=== PATIENT | female | born 1955 | race Hispanic/Latino ===

== ENCOUNTER 2017-05-20 18:14 | Observation (INO) | payer SELFPAY ==
[2017-05-20] MEDS ORDERED: Nitroglycerin 2% Ointment 1 INCH/1 GM Packet ONE (18:48)
[2017-05-20 18:51] LABS: #Basophils 0.1 thou/uL (0.0-0.2); #Eosinphils 0.2 thou/uL (0.0-0.7); #Lymphocytes 2.1 thou/uL (1.20-3.40); #Monocytes 0.6 thou/uL (0.11-0.59); #Neutrophils 5.2 thou/uL (1.40-6.50); %Basophils 1.5 % (0.0-1.0); %Lymphocytes 25.3 % (21.0-51.0); %Monocytes 7.4 % (0.0-10.0); %Neutrophils 63.9 % (42.0-75.0); Mean Corpuscular HGB CONC 33.3 g/dL (32.0-36.0); Mean Corpuscular Hemoglobin 28.8 pg (27.0-31.0); Mean Corpuscular Volume 86.6 fl (81.0-99.0); Platelet Count 168 thou/uL (130-400); RBC Distribution Width 12.3 % (11.5-14.5); Red Blood Cell (RBC) Count 4.85 mill/uL (4.20-5.40); White Blood Cell (WBC) Count 8.2 thou/uL (4.8-10.8)
[2017-05-20 19:12] LABS: ALT (SGPT) 17 U/L (8-55); AST (SGOT) 21 U/L (5-34); Albumin 4.2 g/dL (3.4-4.8); Alkaline Phosphatase 82 U/L (40-150); Anion Gap 11 mmol/L (10-20); BUN (Urea Nitrogen) 15 mg/dL (9.8-20.1); Bilirubin, Total 0.3 mg/dL (0.2-1.2); Calc. Creatinine Clearance 0 mL/min (70-130); Calcium 9.3 mg/dL (7.8-10.44); Carbon Dioxide 28 mmol/L (23-31); Chloride 103 mmol/L (98-107); Estimated GFR-MDRD 77; Globulin 2.8 g/dL (2.4-3.5); Glucose 110 mg/dL (80-115); Potassium 3.9 mmol/L (3.5-5.1); Sodium 138 mmol/L (136-145)
[2017-05-20 19:16] LABS: CKMB 2.8 ng/mL (0-6.6); Troponin I 0.017 ng/mL (< 0.028)
[2017-05-20] MEDS ORDERED: Enoxaparin Sodium 80 MG/0.8 ML SYRINGE ONE (19:45)
--- NOTE | 2017-05-20 19:56 | RAD ---
PORTABLE AP CHEST X-RAY 05/20/17 HISTORY: Shortness of breath and diaphoresis. High blood pressure. COMPARISON: 11/29/11. FINDINGS: The cardiac silhouette is magnified by projection. Pulmonary vasculature is within normal limits. The re is elevation versus eventration of the right hemidiaphragm. The lungs remain clear. There has been no interval change from prior study. IMPRESSION: No acute cardiopulmonary process. POS: [facility]
[2017-05-20] MEDS ORDERED: ALPRAZolam 0.25 MG TAB PO PRN (20:02)
[2017-05-20] MEDS ORDERED: Nitroglycerin 0.4 MG TAB (25 Tab Bottle) SL PRN (21:17)
[2017-05-20] MEDS ORDERED: Bisacodyl 5 MG TAB PO PRN (21:17)
[2017-05-20] MEDS ORDERED: Acetaminophen 325 MG TAB PO PRN (21:17)
[2017-05-20] MEDS ORDERED: Ondansetron HCl/PF 4 MG/2 ML Vial IVP PRN (21:17)
[2017-05-20] MEDS ORDERED: Zolpidem Tartrate 5 MG TAB PO PRN (21:17)
[2017-05-20] MEDS ORDERED: Metoprolol Tartrate 50 MG TAB PO SCH (21:30)
[2017-05-20] MEDS ORDERED: Famotidine/PF 20 mg/2ml Vial SLOW IVP SCH (21:30)
[2017-05-20] MEDS: Atorvastatin Calcium 20 MG TAB PO SCH (21:58)
[2017-05-21 01:06] LABS: Troponin I 1.974 ng/mL (< 0.028)
--- NOTE | 2017-05-21 01:37 | HP ---
HISTORY OF PRESENT ILLNESS: Mrs. Roland is a 62-year-old woman. She came to this facility earlier today with complaint of chest pain and chest pain, which started earlier this afternoon whil e she was sitting was pressure in type, radiated to the left arm, was accompanied by diaphoresis and also vomiting. Pain lasted about 40 minutes until she came to the ER. At that time, she was given n itroglycerin to which she responded. She is being admitted for evaluation and management. She came that she had a similar episode of chest pain about 1 month ago. She denies any previous his tory of heart disease. She is known to have a history of hypertension. She denies diabetes, denies lung disease. Denies liver disease. PAST SURGICAL HISTORY: Remarkable for back surgery which she had twice. She also had previous marie cystectomy and also hysterectomy. ALLERGIES: She does not have any known allergy. SOCIAL HISTORY: She denies any history of cigarette smoking. Denies any history of ETOH abuse. FAMILY HISTORY: Reviewed and is remarkable for premature coronary artery disease. MEDICATIONS: Prior to admission, she was on Coreg, hydrochlorothiazide, losartan, estradiol, meloxic am, gabapentin, sertraline, Protonix, atorvastatin, Zofran, Caltrate with vitamin D. REVIEW OF SYSTEMS: Constitutional: She denies any fever. Denies any weakness. HEENT: No headache , no ocular pain, no sore throat, no rhinorrhea, no earache, no epistaxis. Neck: No neck pain, no n luz stiffness. Cardiovascular: She has some exertional dyspnea. She came in with chest pain as men tioned earlier. Also, we have to mention she had some dizziness and lightheadedness chest pain . Pulmonary: She denies any coughing. Gastrointestinal: She vomited during the chest pain. No di arrhea, no abdominal pain. Musculoskeletal: Admits to arthralgias. Genitourinary: No dysuria, no hematuria. Hematology: No abnormal bleeding, no ecchymosis. Lymphatics: No palpable lymphadenopat hy, no painful lymphadenopathy. Skin: No rash, no itching. Allergies: No hayfever. Neurological: No seizure. Some paresthesia involving the right leg. Psychiatric: Admits to depression for whic h she has been on medication. Endocrinology: No heat or cold intolerance. No polyuria, polydipsia, or polyphagia. PHYSICAL EXAMINATION: GENERAL: At the current time, she is alert, oriented, in no distress. VITAL SIGNS: Temperature of 98.3, pulse rate 65, respiratory rate 19, blood pressure 193/70. HEENT: Her head is normocephalic and atraumatic. Both her pupils are equal, reactive. Ears and nos e normal. Oral mucosa is moist. Pharyngeal area is clear. NECK: Supple. There is no distention of the jugular vein. No lymphadenopathy felt. Thyroid gland not palpable. There is no carotid bruit. CHEST: Symmetrical with regular S1, S2. LUNGS: Clear. ABDOMEN: Soft. Bowel sound heard. We could not appreciate any organomegaly. There is no focal are a of tenderness. EXTREMITIES: Limbs show no edema. NEUROLOGIC: She moves all extremities. LABORATORY DATA: CBC showed WBC of 8.2, hemoglobin of 14, hematocrit of 42, MCV of 86.6, platelet of 168. Chemistry and electrolytes show sodium of 138, potassium 3.9, chloride 103, CO2 28, BUN 15, cr eatinine 0.76, glucose 110, calcium 9.3, total bilirubin 0.3, AST 21, ALT 17, alkaline phosphatase 82 . Troponin was noticed to be 0.017, BNP 108.3, total protein 7, albumin 4.2. Chest x-ray was report ed to show no acute cardiopulmonary process. ASSESSMENT AND PLAN: This is a 62-year-old woman with history of hypertension, obesity who came in with complaint of chest pain. Chest pain which was accompanied by shortness of breath, light headedness, diaphoresis, and also nausea and vomiting with chest pain radiated to her left arm was pr essure in type and lasted about 40 minutes until she receive nitroglycerin at which time her pain was relieved. She is being admitted to telemetry with impression of unstable angina. Cardiology consul t was called. Please see orders.
[2017-05-21] MEDS: Levothyroxine Sodium 25 MCG TAB PO SCH (05:47)
[2017-05-21 05:57] LABS: Anion Gap 12 mmol/L (10-20); BUN (Urea Nitrogen) 13 mg/dL (9.8-20.1); Calc. Creatinine Clearance 119 mL/min (70-130); Calcium 8.8 mg/dL (7.8-10.44); Carbon Dioxide 27 mmol/L (23-31); Chloride 105 mmol/L (98-107); Estimated GFR-MDRD 86; Glucose 104 mg/dL (80-115); Potassium 3.7 mmol/L (3.5-5.1); Sodium 140 mmol/L (136-145)
[2017-05-21] MEDS ORDERED: Regadenoson 0.4 MG/5 ML SYRINGE ONE (06:58)
[2017-05-21 08:44] LABS: Critical Call Chem Troponin I RESULT DECREASING; Troponin I 1.384 ng/mL (< 0.028)
[2017-05-21] MEDS ORDERED: CeleCOXIB 100 MG CAP PO SCH (09:00)
[2017-05-21] MEDS ORDERED: Bupropion 150 MG SR TAB PO SCH (09:00)
--- NOTE | 2017-05-21 10:56 | PDOC.PN ---
- Subjective Encounter Start Date: 05/21/17 Encounter Start Time: 10:00 Subjective: No complaint. -: No chest pain. - Objective Resuscitation Status: Resuscitation Status FULL:Full Resuscitation Vital Signs & Weight: Vital Signs (12 hours) Temp Pulse Resp BP BP Pulse Ox 05/21/17 08:09 98.2 F 67 20 05/21/17 07:38 98.2 F 67 20 142/68 H 95 05/21/17 03:55 58 L 18 136/72 96 05/21/17 00:35 66 18 131/60 95 Weight Weight 195 lb 12.8 oz Result Diagrams: 05/20/17 18:41 05/21/17 05:10 Phys Exam - Physical Examination Constitutional: NAD HEENT: sclera anicteric Neck: no JVD Respiratory: clear to auscultation bilateral Cardiovascular: RRR Gastrointestinal: soft, non-tender Musculoskeletal: no edema Neurological: moves all 4 limbs Psychiatric: A&O x 3 Dx/Plan (1) Elevated troponin Code(s): R74.8 - ABNORMAL LEVELS OF OTHER SERUM ENZYMES Status: Acute Plan: For stress test. Comment: EKG normal. NSTMI. Seen by cardiology. (2) HTN (hypertension) Code(s): I10 - ESSENTIAL (PRIMARY) HYPERTENSION Status: Acute Comment: BP satisfactory. - Plan -: Continue current therapy. -: f/u stress test. * .
[2017-05-21] MEDS: Metoprolol Tartrate 50 MG TAB PO SCH ×2 (13:30→20:15)
[2017-05-21] MEDS: Amlodipine 5 MG TAB PO SCH (13:31)
[2017-05-21] MEDS: Aspirin 81 mg Enteric Coated Tablet PO SCH (13:31)
[2017-05-21] MEDS: Famotidine/PF 20 mg/2ml Vial SLOW IVP SCH ×2 (13:31→20:17)
[2017-05-21] MEDS: Enoxaparin Sodium 60 MG/0.6 ML SYRINGE SC SCH ×2 (13:31→20:21)
--- NOTE | 2017-05-21 14:59 | CON ---
DATE OF ADMISSION: 05/20/2017 DATE OF CONSULTATION: 05/21/2017 ORDERING PHYSICIAN: Dr. Alysia Dumont. INDICATION FOR CONSULTATION: This is a 62-year-old female who experienced chest pain yesterday. She does have a history of hypertension, but no history of diabetes. She described the pain is being pr essured; radiating down to the left arm. She has had some problems with this for several months now. She also complains of occasional nausea and diaphoresis, but the chest discomfort was worse yesterd ay with some numbness in the left arm, it lasted about half an hour to 45 minutes. At the time, she arrived to the emergency room, the symptoms significantly improved, but was given medication in the e mergency room that had complete resolution. EKG was unremarkable. No evidence of EKG changes. Her cardiac enzymes originally were indeterminant or were negative at 0.017, increased up to 0.97, eventu ally up to 1.97 and is now decreased back down to 1.38 with a MB of 2.8. Her BNP was 100.8. She has had some sharp pains also in the past, which was stabbing in nature and sometimes pressure in nature . She was seen by Cardiology approximately 2 years ago at [facility]. It was uncertain as to w hat studies were done, but she said this was prior to undergoing some type of back surgery and she di d not have a cardiac catheterization or stress test according to the patient and was told everything was okay. PAST MEDICAL HISTORY: Significant for cholecystectomy, hysterectomy, back surgery x2, history of dep ression. SOCIAL HISTORY: She has no alcohol or tobacco abuse. She does not work. 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 She speaks very little Greek. FAMILY HISTORY: Positive for some coronary artery disease at younger ages. HOME MEDICATIONS: Include Coreg, estradiol, gabapentin, losartan, meloxicam, Protonix, hydrochloroth iazide, Naprosyn, sertraline, Norvasc, Lipitor, and levothyroxine. ALLERGIES: None. REVIEW OF SYSTEMS: She complains of occasional bronchitis. Neck pain, headaches, dizziness, arthral gias, constipation, occasional nausea, and vomiting, right leg weakness, and dyspnea on exertion. PHYSICAL EXAMINATION: GENERAL: Reveals a well-developed, well-nourished female. VITAL SIGNS: Blood pressure 142/68, heart rate is 67 and regular, respiratory rate 18. She is afebr ile. HEENT: Reveals head to be normocephalic and atraumatic. Carotid pulses are present. There were no bruits. There is no JVD. The thyroid is not enlarged. Oral mucosa was pink and moist. CHEST: Clear to auscultation without rales, rhonchi, or wheezing. CARDIOVASCULAR: Exam reveals a regular rate and rhythm, normal S1, S2, no S3, S4. There were no sig nificant murmurs, heaves, thrills, bruits, or rubs noted. ABDOMEN: Shows obesity with positive bowel sounds. No organomegaly or masses noted. Femoral pulses are present. EXTREMITIES: Showed no clubbing, cyanosis, or edema. Pedal pulses are present. She does have weakn ess in the right lower extremity after back surgery. NEUROLOGIC: She is otherwise unremarkable. SKIN: Warm and dry. IMAGING: EKG shows a normal sinus rhythm. LABORATORY DATA: As noted above for the troponin I, which originally was 0.017 and increased up to 1 .97, is now decreased down to 1.38, but negative MB. Her creatinine is 0.69 with hemoglobin of 14. IMPRESSION: 1. Chest pain with indeterminate cardiac enzymes of uncertain etiology. I would advise her since ey are decreasing and if she has no further chest pain and EKG is unremarkable, she undergo stress te sting. If there are any abnormalities, then she will need to undergo cardiac catheterization to rule out coronary artery disease. 2. Hypertension. This is under good control at this time with the present medication. She did admi t that, yesterday, she did not take her hypertensive medications prior to having the chest discomfort . 3. Hypercholesterolemia. I would advise she continue taking Lipitor. 4. Hypothyroidism. She will continue her levothyroxine. At this time, we will be more than happy t o continue to follow her very carefully. I will order a stress test for her and if there are any abn ormalities, we will plan for cardiac catheterization tomorrow.
[2017-05-21] MEDS: Atorvastatin Calcium 20 MG TAB PO SCH (20:15)
[2017-05-22 05:25] LABS: Cardiac Risk 2.9 (Less than 4.5)
[2017-05-22] MEDS: Levothyroxine Sodium 25 MCG TAB PO SCH (05:49)
--- NOTE | 2017-05-22 09:02 | PDOC.CTH ---
<Jackelyn Moore - Last Filed: 05/22/17 09:00> Cardiology Progress Note - Subjective The pt seen and examined. No overnight cardiac events. No cardiac complaints. She had 2 episodes of Vertigo-like dizziness when she was in bed. Daughter stated she has hx of vertigo. - Objective Vital Signs Temp Pulse Resp BP Pulse Ox 05/22/17 07:42 98.4 F 60 16 05/22/17 07:38 98.4 F 63 20 135/64 96 05/22/17 04:15 98.4 F 60 16 127/60 96 05/21/17 23:11 98.1 F 62 18 146/65 H 96 Weight 191 lb 6.4 oz 05/21/17 05/22/17 05/23/17 06:59 06:59 06:59 Intake Total 392 Output Total 725 Balance -333 - Physical Examination General/Neuro: alert & oriented x3 Neck: no JVD present Lungs: CTA Heart: RRR Extremities: other: (No edema) - Telemetry Telemetry Rhythm: SR 65 - Labs Result Diagrams: 05/20/17 18:41 05/21/17 05:10 Troponin/CKMB CK-MB (CK-2) 2.8 ng/mL (0-6.6) 05/20/17 18:41 Troponin I 1.384 ng/mL (< 0.028) H* 05/21/17 07:55 - Assessment/Plan 1. Elevated Trop. - finishing Stress test today. On BBlocker, ASA 81mg, Statin, and Lovenox BID. If the stress test shows some abnomarlities, plan for Cardiac cath. 2. HTN - stable with current medication; cont. to monitor 3. Hyperlipidemia - on Statin 4. Hypothyroidism - on Levothyroxin; managed by PCP 5. Hx of Vertigo - 2 episodes last night when she was in bed. Described as she was having sea sick. MAR reviewed. Review of Systems - Review of Systems Constitutional: reports: see HPI EENTM: reports: no symptoms reported Respiratory: reports: no symptoms reported Cardiac (ROS): reports: no symptoms reported ABD/GI: reports: no symptoms reported : reports: no symptoms reported Musculoskeletal: reports: no symptoms reported <Jp Sinclair - Last Filed: 05/23/17 11:02> Cardiology Progress Note - Objective Weight 191 lb 6.4 oz 05/22/17 05/23/17 05/24/17 06:59 06:59 06:59 Intake Total 392 Output Total 725 Balance -333 - Labs Result Diagrams: 05/22/17 04:26 05/22/17 04:26 Troponin/CKMB CK-MB (CK-2) 2.8 ng/mL (0-6.6) 05/20/17 18:41 Troponin I 1.384 ng/mL (< 0.028) H* 05/21/17 07:55 - Assessment/Plan Pt. seen and eval. by me. I agree with the A/P by the SCHOOL SPEECH THERAPIST. I discussed the stress test results with her. Chest clear, RRR. Ok to d/c to home . I will sign off.
[2017-05-22] MEDS: Aspirin 81 mg Enteric Coated Tablet PO SCH (09:32)
[2017-05-22] MEDS: Metoprolol Tartrate 50 MG TAB PO SCH (09:32)
[2017-05-22] MEDS: Famotidine/PF 20 mg/2ml Vial SLOW IVP SCH (09:32)
[2017-05-22] MEDS: Amlodipine 5 MG TAB PO SCH (09:34)
[2017-05-22 09:59] LABS: Hemoglobin 14.5 g/dL (12.0-16.0); Platelet Count 160 thou/uL (130-400)
[2017-05-22 11:32] VITALS: TEMP 98.2
--- NOTE | 2017-05-22 12:05 | NM ---
NUCLEAR MEDICINE CARDIAC STRESS WITH EJECTION FRACTION AND WALL MOTION: HISTORY: Chest pain. Diaphoresis. COMPARISON: None. TECHNIQUE: The patient was administered 29.80 mCi of technetium-99m sestamibi for rest imaging and 30.80 mCi of technetium-99m sestamibi for stress imaging. Cardiac gating is performed. FINDINGS: Homogeneous distribution of the radiotracer in the left ventricle. No reversibility or fixed defect. TID is 1.04. End-diastolic volume is 80 mL. End-systolic volume is 21 mL. CARDIAC GATING: Normal motion and thickening. 73% ejection fraction. IMPRESSION: 1. No reversibility or fixed defect. 2. Ejection fraction 73%. POS: [facility]
[2017-05-22] MEDS: Enoxaparin Sodium 60 MG/0.6 ML SYRINGE SC SCH (14:06)
[2017-05-22 15:04] VITALS: BP 159/69
--- NOTE | 2017-05-22 16:02 | DIS ---
DATE OF ADMISSION: 05/20/2017 DATE OF DISCHARGE: 05/22/2017 ADMITTING DIAGNOSIS: Acute chest pain. DISCHARGE DIAGNOSIS: Non-ST elevated myocardial infarction. SECONDARY DIAGNOSES: 1. Morbid obesity. 2. Benign positional vertigo. 3. Hypertension. 4. Hyperlipidemia. HISTORY OF PRESENT ILLNESS AND HOSPITAL COURSE: In brief, this is a 62-year-old morbidly obese [facility] woman. She came into the hospital complaining of chest pain. It started earlier this afternoon and was more of a pressure type of pain radiated in the left arm and was associated with diaphoresis and vomiting. The patient's pain lasted for more than 40 minutes. When she came to the ER and she w as given nitroglycerin, which did relieve her pain. She denies any previous past history of cardiac disease, but has history of hypertension. No history of diabetes. No history of lung disease. Jessi ent was noted to have elevated troponins, so Cardiology was consulted, who decided to do a nuclear st ress test. Patient was chest pain free when she came to the hospital after she was given nitroglycer in. Her troponins went up to 1.384 and Cardiology did decide to send her for a nuclear stress test, which was unremarkable with no evidence of any reversible defects. So the following day, the patient 's chest pain was gone, but there is no troponin followed and no repeat EKG was done. Cardiology dec ided to discharge the patient home on aspirin and statins. Consultants involved in this care is Dr. Sinclair from Cardiology. PHYSICAL EXAMINATION: VITAL SIGNS: Blood pressures are 135/64, heart rate is 63, respiratory is 20, and saturation 96%. GENERAL: The patient is moderately built and moderately nourished. She does not appear to be in acu te distress at this time. Alert, oriented x3. HEENT: Atraumatic, normocephalic. PERRLA. Extraocular muscles were intact. Oral mucosa pink and m oist. CARDIOVASCULAR: S1 and S2 normal. No murmurs, rubs or gallops. LUNGS: Bilateral air entry was equal. No wheezing, no crackles. ABDOMEN: Soft, nontender, no guarding, no rebound tenderness. Bowel sounds are normal. MUSCULOSKELETAL: No calf tenderness, no pedal edema, no joint tenderness, no joint swelling. SKIN: No cyanosis, no erythema, no rash, no pallor. DISCHARGE MEDICATIONS: 1. Coreg 6.25 mg p.o. b.i.d. 2. Gabapentin 300 mg p.o. t.i.d. 3. Losartan 25 mg p.o. daily. 4. Meloxicam 50 mg p.o. daily. 5. Pantoprazole 40 mg p.o. b.i.d. 4. Hydrochlorothiazide 25 mg p.o. daily. 5. Sertraline 100 mg p.o. daily. 6. Amlodipine 10 mg p.o. daily. 7. Levothyroxine 50 mcg p.o. daily. NEW MEDICATIONS: 1. Atorvastatin 20 mg p.o. daily. 2. Aspirin 81 mg p.o. daily. 3. Nitroglycerin 0.4 mg sublingual p.r.n. as needed for chest pain. DISCHARGE INSTRUCTIONS: Continue activity as tolerated. Advised to follow up with Cardiology in 1-2 weeks. Advised to follow up with primary care physician in 1-2 weeks. Advised to return to the ER if the patient develops any further chest pains. I spent 35 minutes with this patient.
--- NOTE | 2017-05-27 15:13 | EKG ---
Test Reason : REPEAT EKG Blood Pressure : / mmHG Vent. Rate : 066 BPM Atrial Rate : 066 BPM P-R Int : 152 ms QRS Dur : 078 ms QT Int : 406 ms P-R-T Axes : 069 014 044 degrees QTc Int : 425 ms Normal sinus rhythm Normal ECG Confirmed by ODILON GUPTA ([id number]), associate entertainment editor BELL RUELAS ([id number]) on 05/27/2017 3:12:49 PM Referred By: Confirmed By:ODILON GUPTA
--- NOTE | 2017-05-27 15:13 | EKG ---
Test Reason : HTN Blood Pressure : / mmHG Vent. Rate : 068 BPM Atrial Rate : 068 BPM P-R Int : 134 ms QRS Dur : 090 ms QT Int : 402 ms P-R-T Axes : 055 022 055 degrees QTc Int : 427 ms Normal sinus rhythm Normal ECG Confirmed by ODILON GUPTA ([id number]), desk editor BELL RUELAS ([id number]) on 05/27/2017 3:12:48 PM Referred By: Confirmed By:ODILON GUPTA
--- NOTE | 2017-06-27 13:36 | STRESS ---
Acquisition Time: 2017-05-21 11:33:23 Total Exercise Time: 00:01:00 Test Indications: CP, INDETERMINATE CIE'S Medications: Protocol: LEXISCAN Max HR: 092 BPM 58% of Pred: 158 BPM Max BP: 136/074 mmHG Max Work Load: 1.0 METS RESTING ECG: NORMAL SINUS RHYTHM AT 64 BPM SYMPTOMS: CHEST TIGHTNESS, DYSPNEA ON EXERTION NORMAL BP RESPONSE ECTOPY: NONE ECG STRESS: NO SIGNIFICANT CHANGES INTERPRETATION: NEGATIVE ECG/ AWAIT NUCLEAR IMAGES FOR DEFINITIVE DIAGNOSIS Confirmed by ISACC FONTAINE ([id number]) on 06/27/2017 1:35:50 PM Referred By: Delfina SOLIS Confirmed By:ISACC FONTAINE
== END 2017-05-22 15:58 | disposition home or self-care (01) ==
LOC: ERS 18:14 → 2SW 19:35
PROVIDERS: ADMIT Hospitalist; ATTEND Hospitalist
DX: I21.4 Non-ST elevation (NSTEMI) myocardial infarction (principal); H81.10 Benign paroxysmal vertigo, unspecified ear; I10 Essential (primary) hypertension; E78.5 Hyperlipidemia, unspecified; F32.9 Major depressive disorder, single episode, unspecified; E78.00 Pure hypercholesterolemia, unspecified; E03.9 Hypothyroidism, unspecified; E66.01 Morbid (severe) obesity due to excess calories; Z68.33 Body mass index [BMI] 33.0-33.9, adult; Z79.899 Other long term (current) drug therapy; Z90.49 Acquired absence of other specified parts of digestive tract; Z90.710 Acquired absence of both cervix and uterus; Z98.890 Other specified postprocedural states
CPT/HCPCS: 36415; 71045; 78452; 80048; 80053; 80061; 82553; 82565; 83880; 84484; 85014; 85018; 85025; 85049; 93005; 93017; 96372; 96375; 96376; A4216; A9500; G0378; J1650; J2785; S0028

== ENCOUNTER 2020-04-29 09:34 | Emergency (ER) | payer BC, SELFPAY ==
--- NOTE | 2020-04-29 10:20 | RAD ---
XR Chest 1 View Portable History: Dyspnea Comparison: Radiograph May 20, 2017 Findings: Faint peripheral and perihilar airspace opacities. No pneumothorax. No effusion. No acute o sseous abnormality. Cardiac silhouette and mediastinal contours are similar. Impression: Mild peripheral and parahilar patchy airspace opacities can be seen with Covid 19 pneumon ia.
[2020-04-29 11:05] LABS: #Monocytes 0.3 thou/uL (0.11-0.59); #Neutrophils 2.2 thou/uL (1.40-6.50); %Basophils 1.1 % (0.0-1.0); %Eosinophils 0.3 % (0.0-10.0); %Lymphocytes 28.6 % (21.0-51.0); %Monocytes 7.7 % (0.0-10.0); %Neutrophils 62.4 % (42.0-75.0); Hemoglobin 15.7 g/dL (12.0-16.0); Large Platelets SLIGHT; MDiff Complete? YES; Mean Corpuscular Hemoglobin 28.9 pg (27.0-31.0); Mean Corpuscular Volume 85.2 fL (78.0-98.0); Mean Platelet Volume 10.9 fL (7.4-10.4); Platelet Count 66 thou/uL (130-400); Platelet Morphology Comment Appears Decreased; RBC Distribution Width 11.9 % (11.5-14.5); RBC Morphology Normal; Red Blood Cell (RBC) Count 5.41 mill/uL (4.20-5.40); White Blood Cell (WBC) Count 3.6 thou/uL (4.8-10.8)
[2020-04-29 11:34] LABS: Anion Gap 18 mmol/L (10-20); BUN (Urea Nitrogen) 11 mg/dL (9.8-20.1); Calc. Creatinine Clearance 0 mL/min (70-130); Carbon Dioxide 26 mmol/L (23-31); Chloride 93 mmol/L (98-107); Potassium 3.5 mmol/L (3.5-5.1); Sodium 133 mmol/L (136-145)
[2020-04-29 11:35] LABS: ALT (SGPT) 34 U/L (8-55); AST (SGOT) 49 U/L (5-34); Alkaline Phosphatase 95 U/L (40-110); Bilirubin, Total 0.5 mg/dL (0.2-1.2); Calcium 8.5 mg/dL (7.8-10.44); Globulin 3.8 g/dL (2.4-3.5); Glucose 173 mg/dL (80-115); Protein, Total 7.8 g/dL (5.8-8.1)
[2020-04-29 17:57] LABS: SARS-CoV-2 PCR by NAA DETECTED (NotDetected)
== END 2020-04-29 11:38 | disposition home or self-care (01) ==
LOC: ERS 09:34
DX: U07.1 COVID-19 (principal); I25.10 Atherosclerotic heart disease of native coronary artery without angina pectoris; E78.5 Hyperlipidemia, unspecified; I10 Essential (primary) hypertension
CPT/HCPCS: 71045; 80053; 83880; 84484; 85025; 87635; 93005; U0003; U0005

== ENCOUNTER 2020-05-01 13:06 | Emergency (ER) | payer OTHER, SELFPAY ==
[2020-05-01] MEDS ORDERED: Acetaminophen 500 MG TAB ONE (13:35)
[2020-05-01 14:16] LABS: #Lymphocytes 1.1 thou/uL (1.20-3.40); #Monocytes 0.3 thou/uL (0.11-0.59); %Eosinophils 0.1 % (0.0-10.0); %Lymphocytes 32.3 % (21.0-51.0); %Monocytes 9.5 % (0.0-10.0); %Neutrophils 57.2 % (42.0-75.0); Hemoglobin 14.7 g/dL (12.0-16.0); Mean Corpuscular HGB CONC 33.4 g/dL (32.0-36.0); Mean Corpuscular Hemoglobin 28.2 pg (27.0-31.0); Mean Corpuscular Volume 84.3 fL (78.0-98.0); Mean Platelet Volume 10.4 fL (7.4-10.4); Platelet Count 94 thou/uL (130-400); RBC Distribution Width 11.8 % (11.5-14.5); Red Blood Cell (RBC) Count 5.22 mill/uL (4.20-5.40); White Blood Cell (WBC) Count 3.4 thou/uL (4.8-10.8)
[2020-05-01 14:23] LABS: ALT (SGPT) 30 U/L (8-55); AST (SGOT) 43 U/L (5-34); Albumin 3.5 g/dL (3.4-4.8); Alkaline Phosphatase 80 U/L (40-110); Anion Gap 14 mmol/L (10-20); BUN (Urea Nitrogen) 10 mg/dL (9.8-20.1); Bilirubin, Total 0.5 mg/dL (0.2-1.2); Calc. Creatinine Clearance 0 mL/min (70-130); Calcium 8.1 mg/dL (7.8-10.44); Carbon Dioxide 32 mmol/L (23-31); Chloride 91 mmol/L (98-107); Globulin 3.2 g/dL (2.4-3.5); Glucose 136 mg/dL (80-115); Potassium 3.1 mmol/L (3.5-5.1); Protein, Total 6.7 g/dL (5.8-8.1); Sodium 134 mmol/L (136-145)
[2020-05-01] MEDS ORDERED: Potassium Chloride 20 MEQ TAB ONE (15:13)
== END 2020-05-01 19:42 | disposition home or self-care (01) ==
LOC: ERS 13:06
DX: M62.81 Muscle weakness (generalized) (principal); U07.1 COVID-19; I25.10 Atherosclerotic heart disease of native coronary artery without angina pectoris; E87.6 Hypokalemia; I25.2 Old myocardial infarction; I10 Essential (primary) hypertension; E03.9 Hypothyroidism, unspecified; E78.5 Hyperlipidemia, unspecified; Z79.899 Other long term (current) drug therapy
CPT/HCPCS: 36415; 71045; 80053; 83605; 83880; 84484; 85025; 87040; 93005

== ENCOUNTER 2020-05-02 13:09 | Inpatient (IN) | payer SELFPAY ==
[~2020-05-02 13:09] MED LIST: Iopamidol-370 76% 500 ML 1 ML ONE
[2020-05-02] MEDS ORDERED: Aspirin Chewable 81 MG TAB ONE (15:35)
[2020-05-02] MEDS ORDERED: Acetaminophen 500 MG TAB ONE (15:35)
[2020-05-02] MEDS ORDERED: Ondansetron PF 4 MG/2 ML Vial ONE (15:35)
[2020-05-02] MEDS ORDERED: Dexamethasone 10 MG/ML VIAL ONE (15:35)
--- NOTE | 2020-05-02 16:58 | RAD ---
Exam: Chest one view HISTORY:Positive patient. Patient feels horrible. Comparison: 1221 FINDINGS: Cardiac silhouette: Normal Aorta: Unremarkable Pulmonary vessels: Normal Costophrenic angles: Interval progression of multifocal interstitial and alveolar opacities. LUNGS: No masses or consolidation. Pneumothorax: None Osseous abnormalities: None IMPRESSION: Progression of multifocal interstitial and alveolar opacities, compatible with multi loba r COVID pneumonia.
[2020-05-02 17:07] LABS: Bilirubin Negative (Negative); Blood, Urine Negative (Negative); Clarity Clear (Clear); Glucose, Urine (Dipstick) Normal (Negative); Ketone, Urine Negative (Negative); Leukocyte 250 Leu/uL (Negative); Nitrite Negative (Negative); Protein, Urine (Dipstick) Negative (Neg-Trace); RBC/HPF 0-3 HPF (0-3); Renal Epithelial 0-3 HPF (None Seen); Specific Gravity, Urine 1.005 (1.002-1.036); Squamous Epithelial 0-3 HPF (0-3); Urobilinogen Normal mg/dL (Less than 2); WBC/HPF None Seen HPF (0-3)
[2020-05-02 17:32] LABS: Bacteria/HPF Rare-Few HPF (None Seen)
--- NOTE | 2020-05-02 17:48 | CT ---
EXAM: CT ANGIOGRAM CHEST WITH 3D RENDERIN05/02/20 HISTORY: Cough, bodyaches, nausea, vomiting, diarrhea, shortness of breath. Patchy bilateral interstitial, alveolar, and ground glass opacity changes throughout both lungs, evid ence for bilateral COVID pneumonia. Mild dilatation of the main pulmonary artery suggesting some pulm onary artery hypertension. Borderline sized to minimally enlarged mediastinal lymph nodes and hilar l ymph nodes. No pleural effusion or pericardial effusion. The visualized abdomen demonstrates a small hiatal hernia. IMPRESSION: 1. No CT evidence for significant acute pulmonary embolism. 2. Bilateral COVID pneumonia. 3. Small hiatal hernia. 4. Borderline to minimally enlarged mediastinal and hilar lymph nodes. POS: [facility]
[2020-05-02 17:55] LABS: #Lymphocytes 0.8 thou/uL (1.20-3.40); #Monocytes 0.2 thou/uL (0.11-0.59); #Neutrophils 3.1 thou/uL (1.40-6.50); %Lymphocytes 19.7 % (21.0-51.0); %Monocytes 4.4 % (0.0-10.0); %Neutrophils 75.9 % (42.0-75.0); Hemoglobin 13.1 g/dL (12.0-16.0); Mean Corpuscular HGB CONC 33.4 g/dL (32.0-36.0); Mean Corpuscular Hemoglobin 28.2 pg (27.0-31.0); Mean Corpuscular Volume 84.4 fL (78.0-98.0); Mean Platelet Volume 9.6 fL (7.4-10.4); Platelet Count 96 thou/uL (130-400); Red Blood Cell (RBC) Count 4.64 mill/uL (4.20-5.40); White Blood Cell (WBC) Count 4.1 thou/uL (4.8-10.8)
[2020-05-02] MEDS ORDERED: cefTRIAXone\\ROCEPHIN 1 GM VIAL ONE (18:02)
--- NOTE | 2020-05-02 18:08 | PDOC.HHP ---
Hospitalist HPI Worsening Covid symptoms History of Present Illness: PCP: Dr. Bradshaw The patient is a 65-year-old female with a past medical history significant for CAD, hypothyroidism and anxiety depression that presents to the emergency department with above complaint. Patient reports being diagnosed with Covid virus 4 days ago. She reports that her initial symptoms started 3 days prior to her diagnosis. Her symptoms began with chills and diarrhea. She reports that her mother and grandmother are both diagnosed with Covid. She reports that over the past several days her symptoms have worsened. She reports subjective fever, chills, bodyaches, shortness of breath, with a nonproductive cough. She denies any chest pain, heart palpitations or hemoptysis. She denies any abdominal pain, however, endorses nausea and vomiting x3 episodes today. She denies any hematemesis, hematochezia/melena. She denies any dysuria or hematuria. Since her diagnosis, the patient has been to the ER multiple occasions. She was dis charged yesterday with prescriptions that she did not fill. ED Course: VITAL SIGNS Sat May 02, 2020 13:20 KIRK Frey Kyndall BP: 144/96, MAP: 112, Pulse: 83, Resp: 18, Temp: 100.9 (Oral), Pain: 10, O2 sat: 97 on (2L Oxygen), Time: 05/02/2020 13:20. EKG normal sinus rhythm, no ST elevations. Initial troponin 0.024, D-dimer 0.87 CTA chest negative for pulmonary embolism, positive for bilateral Covid pneumonia. CXR multi lobar Covid pneumonia WBCs 4.1, lactic acid 1.2 UA leukocytes, no WBCs, nitrites Medications: azithromycin intravenous 500 mg IV Piggy Back Acknowledged 18:02 05/02/2020 cefTRIAXone injection 1 g IV Push Acknowledged 18:02 05/02/2020 dexamethasone 10 mg Oral Given 16:10 05/02/2020 Zofran intravenous 4 mg IV Push Given 16:08 05/02/2020 sodium chloride 0.9 % intravenous 1000 mL IV Fluid Infusion Given 16:07 05/02/2020 Tylenol 1 g Oral Given 15:54 05/02/2020 Chung Aspirin 324 mg Oral Given 15:53 05/02/2020 Allergies/Adverse Reactions: Allergy/AdvReac Type Severity Reaction Status Date / Time No Known Allergies Allergy Verified 06/09/19 12:43 Home Medications: Medication Instructions Recorded Confirmed Type Amlodipine Besylate [amLODIPine 10 mg PO DAILY 11/14/13 05/20/17 History Besylate] Calcium Carbonate/Vitamin D3 1 tablet PO DAILY 11/14/13 05/20/17 History [Calcium 600-Vit D3 400 Tablet] Hydrochlorothiazide 25 mg PO DAILY 11/14/13 05/20/17 History Levothyroxine Sodium 50 mcg PO DAILY 11/14/13 05/20/17 History Multivitamin With Minerals [One 1 tablet PO DAILY 11/14/13 05/20/17 History Daily 50 Plus] Sertraline HCl [Zoloft] 100 mg PO DAILY 11/14/13 05/20/17 History Carvedilol 9.375 mg PO BID-WM 05/20/17 05/21/17 History Gabapentin 300 mg PO TID 05/20/17 05/20/17 History Losartan [Cozaar] 25 mg PO DAILY 05/20/17 05/20/17 History Meloxicam 15 mg PO DAILY 05/20/17 05/20/17 History Pantoprazole [Protonix] 40 mg PO BID 05/20/17 05/20/17 History Aspirin [Ecotrin Low Strength] 81 mg PO DAILY #30 tab 05/22/17 Rx Atorvastatin Calcium [Lipitor] 20 mg PO HS #30 tab 05/22/17 Rx Nitroglycerin [Nitrostat] 0.4 mg SL Q5MIN PRN #20 tab 05/22/17 Rx Past History: PMHx: CAD, HTN, HLD, hypothyroidism, GERD, anxiety depression, osteoarthritis PSHx: Bilateral knee surgery, lumbar surgery, bilateral carpal tunnel FHx: Grandmother and mother positive for Covid virus Social: Patient lives with her family, denies any history of smoking, illicit drug use or heavy alcohol intake. She stays at home and does not work. She ambulates with a roller walker. Hospitalist HPI ROS All other systems reviewed; all pertinent +/- noted in HPI/Subj Hospitalist Exam General Appearance: NAD, awake alert. negative: ill appearing General - other findings: Appears comfortable Eye: anicteric sclera ENT: normocephalic atraumatic, moist mucosa Neck: supple, no lymphadenopathy Heart: RRR, no murmur, no gallops, no rubs, normal peripheral pulses Respiratory: CTAB, no wheezes, no rales, no ronchi, normal chest expansion, no tachypnea Gastrointestinal: soft, non-tender, non-distended, normal bowel sounds, no guarding, no rigidity Extremities: no cyanosis, no edema Skin: no rashes Neurological: no focal deficits Musculoskeletal: normal tone, normal strength Psychiatric: normal affect, A&O x 3 Hospitalist Results Result Diagrams: 05/02/20 17:43 05/02/20 17:43 Lab results: Laboratory Last Values WBC 4.1 thou/uL (4.8-10.8) L 05/02/20 17:43 RBC 4.64 mill/uL (4.20-5.40) 05/02/20 17:43 Hgb 13.1 g/dL (12.0-16.0) 05/02/20 17:43 Hct 39.2 % (36.0-47.0) 05/02/20 17:43 MCV 84.4 fL (78.0-98.0) 05/02/20 17:43 MCH 28.2 pg (27.0-31.0) 05/02/20 17:43 MCHC 33.4 g/dL (32.0-36.0) 05/02/20:43 RDW 12.0 % (11.5-14.5) 05/02/20 17:43 Plt Count 96 thou/uL (130-400) L 05/02/20 17:43 MPV 9.6 fL (7.4-10.4) 05/02/20 17:43 Neutrophils % 75.9 % (42.0-75.0) H 05/02/20 17:43 Neutrophils % (Manual) Not Reportable 05/02/20 17:43 Lymphocytes % 19.7 % (21.0-51.0) L 05/02/20 17:43 Monocytes % 4.4 % (0.0-10.0) 05/02/20 17:43 Eosinophils % 0.0 % (0.0-10.0) 05/02/20 17:43 Basophils % 0.0 % (0.0-1.0) 05/02/20 17:43 Neutrophils # 3.1 thou/uL (1.40-6.50) 05/02/20 17:43 Lymphocytes # 0.8 thou/uL (1.20-3.40) L 05/02/20 17:43 Monocytes # 0.2 thou/uL (0.11-0.59) 05/02/20 17:43 Eosinophils # 0.0 thou/uL (0.0-0.7) 05/02/20 17:43 Basophils # 0.0 thou/uL (0.0-0.2) 05/02/20 17:43 D-Dimer 0.87 *mcg/mL (0.27-0.43) H 05/02/20 17:43 Urine Color Light-Yellow (Yellow) 05/02/20 16:48 Urine Clarity Clear (Clear) 05/02/20 16:48 Urine pH 7.0 (5.0-9.0) 05/02/20 16:48 Ur Specific [place] 1.005 (1.002-1.036) 05/02/20 16:48 Urine Protein Negative mg/dL (Neg-Trace) 05/02/20 16:48 Urine Glucose (UA) Normal mg/dL (Negative) 05/02/20 16:48 Urine Ketones Negative mg/dL (Negative) 05/02/20 16:48 Urine Blood Negative (Negative) 05/02/20 16:48 Urine Nitrite Negative (Negative) 05/02/20 16:48 Urine Bilirubin Negative (Negative) 05/02/20 16:48 Urine Urobilinogen Normal mg/dL (Less than 2) 05/02/20 16:48 Ur Leukocyte Esterase 250 Luis Enrique/uL (Negative) A 05/02/20 16:48 Urine RBC 0-3 HPF (0-3) 05/02/20 16:48 Urine WBC None Seen HPF (0-3) 05/02/20 16:48 Ur Squamous Epith Cells 0-3 HPF (0-3) 05/02/20 16:48 Ur Renal Epithelial Cell 0-3 HPF (None Seen) A 05/02/20 16:48 Urine Bacteria Rare-Few HPF (None Seen) 05/02/20 16:48 EKG Status: image reviewed by me, report reviewed by me Additional Comments: Normal sinus rhythm normal EKG pulse 80 no STEMI. Chest x-ray Status: report reviewed by me Additional Comments: IMPRESSION: Progression of multifocal interstitial and alveolar opacities, compatible with multi lobar COVID pneumonia. CT scan - chest Status: report reviewed by me Additional Comments: 1. No CT evidence for significant acute pulmonary embolism. 2. Bilateral Covid Pneumonia 3.Small hiatal hernia 4. Borderline to minimally enlarged mediastinal and hilar lymph nodes. Hospitalist H&P A/P (1) Pneumonia due to COVID-19 virus Code(s): U07.1 - COVID-19; J12.82 - PNEUMONIA DUE TO CORONAVIRUS DISEASE 2019 Status: Acute (2) CAD (coronary artery disease) Code(s): I25.10 - ATHSCL HEART DISEASE OF [place] CORONARY ARTERY W/O ANG PCTRS Status: Chronic Qualifiers: Coronary Disease-Associated Artery/Lesion type: [place] artery [place] vs. transplanted heart: [place] heart Associated angina: without angina Qualified Code(s): I25.10 - Atherosclerotic heart disease of [place] coronary artery without angina pectoris (3) HTN (hypertension) Code(s): I10 - ESSENTIAL (PRIMARY) HYPERTENSION Status: Chronic Qualifiers: Hypertension type: essential hypertension Qualified Code(s): I10 - Essential (primary) hypertension (4) HLD (hyperlipidemia) Code(s): E78.5 - HYPERLIPIDEMIA, UNSPECIFIED Status: Chronic Qualifiers: Hyperlipidemia type: unspecified Qualified Code(s): E78.5 - Hyperlipidemia, unspecified (5) Hypothyroidism Code(s): E03.9 - HYPOTHYROIDISM, UNSPECIFIED Status: Chronic (6) GERD (gastroesophageal reflux disease) Code(s): K21.9 - GASTRO-ESOPHAGEAL REFLUX DISEASE WITHOUT ESOPHAGITIS Status: Chronic (7) Anxiety and depression Code(s): F41.9 - ANXIETY DISORDER, UNSPECIFIED; F32.9 - MAJOR DEPRESSIVE DISORDER, SINGLE EPISODE, UNSPECIFIED Status: Chronic (8) Osteoarthritis Code(s): M19.90 - UNSPECIFIED OSTEOARTHRITIS, UNSPECIFIED SITE Status: Chronic Plan: The patient with COVID-19 virus presents for worsening Covid symptoms. Imaging negative for pulmonary embolism, consistent for bilateral Covid pneumonia. #Pneumonia due to COVID-19 virus Presented febrile, 94% SPO2 on room air. Not a candidate for remdesivir or dexamethasone. Dayteam consider consultation with ID for therapeutic options. WBCs of 4.1, lactic acid 1.2 No indication for antibiotics at this time. Continue supplemental oxygen as needed Lovenox schedule. Tessalon and Mucinex as needed Isolation precautions Vitamin C, vitamin D, zinc and melatonin. Check acute phase reactant in the a.m. Culture urine. #CAD Chronic. Patient denies any chest pain. Trend troponins. Restart home dose Coreg, Norvasc, HCTZ, losartan, atorvastatin. Restart home dose baby aspirin. #HTN Chronic, stable Restart home dose Norvasc, Coreg, HCTZ, losartan #HLD Restart home dose atorvastatin #Hypothyroidism Chronic. Restart home dose levothyroxine Check TSH. #GERD Restart home dose Protonix. #Anxiety and depression Denies SI/HI Takes duloxetine at home. Restart duloxetine when reconciled by nursing. #Osteoarthritis Chronic. Takes meloxicam and gabapentin. Restart home medications or consult by nursing. Lovenox for DVT prophylaxis. Protonix for GI prophylaxis. CODE STATUS full code. Discussed case with attending physician Dr. Link, who agrees with plan of care.
[2020-05-02 18:15] LABS: ALT (SGPT) 21 U/L (8-55); AST (SGOT) 35 U/L (5-34); Alkaline Phosphatase 65 U/L (40-110); Anion Gap 14 mmol/L (10-20); BUN (Urea Nitrogen) 5 mg/dL (9.8-20.1); Bilirubin, Total 0.5 mg/dL (0.2-1.2); Calc. Creatinine Clearance 0 mL/min (70-130); Calcium 7.5 mg/dL (7.8-10.44); Carbon Dioxide 25 mmol/L (23-31); Chloride 101 mmol/L (98-107); Globulin 2.7 g/dL (2.4-3.5); Glucose 116 mg/dL (80-115); Potassium 3.1 mmol/L (3.5-5.1); Protein, Total 5.7 g/dL (5.8-8.1); Sodium 137 mmol/L (136-145)
[2020-05-02] MEDS ORDERED: Azithromycin 500 MG VIAL ONE (18:29)
[2020-05-02] MEDS ORDERED: Potassium Chloride 20 MEQ TAB ONE (18:37)
[2020-05-02] MEDS ORDERED: Calcium Carbonate 500 MG ChewTAB PO PRN (18:48)
[2020-05-02] MEDS ORDERED: Potassium Chloride 20 MEQ TAB PO SCH (20:30)
[2020-05-02] MEDS: Gabapentin 300 MG CAP PO SCH (21:10)
[2020-05-02] MEDS: Melatonin 3 MG TAB PO SCH (21:10)
[2020-05-02] MEDS: Losartan 25 MG TAB PO SCH (21:10)
[2020-05-02] MEDS: Atorvastatin Calcium 20 MG TAB PO SCH (21:10)
[2020-05-02 21:22] VITALS: BMI 30.4
[2020-05-02 21:31] LABS: Troponin I 0.031 ng/mL (< 0.028)
[2020-05-03 01:40] LABS: Troponin I 0.032 ng/mL (< 0.028)
[2020-05-03] MEDS: Levothyroxine Sodium 50 MCG TAB PO SCH (05:10)
[2020-05-03 06:35] LABS: #Lymphocytes 0.5 thou/uL (1.20-3.40); #Monocytes 0.2 thou/uL (0.11-0.59); #Neutrophils 1.2 thou/uL (1.40-6.50); %Basophils 1.9 % (0.0-1.0); %Eosinophils 0.2 % (0.0-10.0); %Lymphocytes 27.4 % (21.0-51.0); %Neutrophils 62.6 % (42.0-75.0); Hemoglobin 14.3 g/dL (12.0-16.0); Mean Corpuscular HGB CONC 32.6 g/dL (32.0-36.0); Mean Corpuscular Hemoglobin 28.1 pg (27.0-31.0); Mean Platelet Volume 9.4 fL (7.4-10.4); Platelet Count 112 thou/uL (130-400); RBC Distribution Width 12.1 % (11.5-14.5)
[2020-05-03 06:43] LABS: Anion Gap 14 mmol/L (10-20); BUN (Urea Nitrogen) 10 mg/dL (9.8-20.1); Calc. Creatinine Clearance 117 mL/min (70-130); Calcium 8.3 mg/dL (7.8-10.44); Carbon Dioxide 24 mmol/L (23-31); Chloride 107 mmol/L (98-107); Glucose 170 mg/dL (80-115); Magnesium 2.3 mg/dL (1.6-2.6); Potassium 4.3 mmol/L (3.5-5.1); Sodium 141 mmol/L (136-145)
[2020-05-03] MEDS: Cholecalciferol 1,000 UNITS (25 MCG) TAB PO SCH (08:00)
[2020-05-03] MEDS: Losartan 25 MG TAB PO SCH ×2 (08:01→21:27)
[2020-05-03] MEDS: Hydrochlorothiazide 25 MG TAB PO SCH (08:01)
[2020-05-03] MEDS: Zinc Sulfate 220 MG CAP PO SCH (08:01)
[2020-05-03] MEDS: Gabapentin 300 MG CAP PO SCH ×3 (08:01→21:27)
[2020-05-03] MEDS: Amlodipine 10 MG TAB PO SCH (08:01)
[2020-05-03] MEDS: Ascorbic Acid 500 mg Chewable Tablet PO SCH (08:01)
[2020-05-03] MEDS: Calcium Carbonate 600 MG + Vit D TAB PO SCH (08:02)
[2020-05-03] MEDS: Aspirin 81 mg Enteric Coated Tablet PO SCH (08:02)
[2020-05-03] MEDS: Carvedilol 6.25 MG TAB PO SCH ×2 (08:02→17:08)
[2020-05-03] MEDS: Enoxaparin Sodium 40 MG/0.4 ML SYRINGE SC SCH (08:03)
[2020-05-03] MEDS ORDERED: Meloxicam 15 MG TAB PO SCH (09:00)
[2020-05-03] MEDS: Cefepime 2 GM in Sodium Chloride 0.9% 100 ML IVPB SCH ×2 (11:15→22:09)
--- NOTE | 2020-05-03 11:33 | PDOC.HOSPP ---
- Subjective Encounter Date: 05/03/20 Encounter Time: 11:31 Subjective: Patient seen and examined. 65-year-old admitted to the hospital for COVID-19 pneumonia and respiratory failure. She is on O2 via nasal cannula and seems to be stable at this time. We will continue supportive care. I have added empiric antibiotic due to concern for superimposed bacterial pneumonia. We will continue antibiotics for now. - Objective Vital Signs & Weight: Vital Signs (12 hours) Temp Pulse Resp BP BP Pulse Ox 05/03/20 08:32 98.7 F 77 20 128/71 94 L 05/03/20 04:20 69 18 124/78 96 05/02/20 23:40 97.6 F 72 18 105/70 95 Weight Weight 172 lb Result Diagrams: 05/03/20 06:15 05/03/20 06:15 Radiology Reviewed by me: Yes EKG Reviewed by me: Yes Hospitalist ROS - Review of Systems Respiratory: reports: shortness of breath, SOB with excertion, sputum, wheezing Cardiovascular: reports: orthopnea Neurological: reports: weakness - Medication Medications: Active Medications Generic Name Dose Route Start Last Admin Trade Name Freq PRN Reason Stop Dose Admin Amlodipine Besylate 10 mg 05/03/20 09:00 05/03/20 08:01 Amlodipine 10 Mg Tab PO 10 mg DAILY DO Administration Ascorbic Acid 1,000 mg 05/03/20 09:00 05/03/20 08:01 Ascorbic Acid 500 Mg Chewable Tablet PO 1,000 mg DAILY DO Administration Aspirin 81 mg 05/03/20 09:00 05/03/20 08:02 Aspirin 81 Mg Enteric Coated Tablet PO 81 mg DAILY DO Administration Atorvastatin Calcium 20 mg 05/02/20 21:00 05/02/20 21:10 Atorvastatin Calcium 20 Mg Tab PO 20 mg HS DO Administration Calcium/Vitamin D 1 tab 05/03/20 09:00 05/03/20 08:02 Calcium Carbonate 600 Mg + Vit D Tab PO 1 tab DAILY DO Administration Carvedilol 6.25 mg 05/03/20 08:00 05/03/20 08:02 Carvedilol 6.25 Mg Tab PO 6.25 mg BID-WM DO Administration Cholecalciferol 5,000 units 05/03/20 09:00 05/03/20 08:00 Cholecalciferol 1,000 Units (25 Mcg) Tab PO 5,000 units DAILY DO Administration Enoxaparin Sodium 40 mg 05/03/20 09:00 05/03/20 08:03 Enoxaparin Sodium 40 Mg/0.4 Ml Syringe SC 40 mg 0900 DO Administration Gabapentin 300 mg 05/02/20 21:00 05/03/20 08:01 Gabapentin 300 Mg Cap PO 300 mg TID DO Administration Hydrochlorothiazide 25 mg 05/03/20 09:00 05/03/20 08:01 Hydrochlorothiazide 25 Mg Tab PO 25 mg DAILY DO Administration Levothyroxine Sodium 50 mcg 05/03/20 06:00 05/03/20 05:10 Levothyroxine Sodium 50 Mcg Tab PO 50 mcg 0600 DO Administration Losartan Potassium 25 mg 05/02/20 21:00 05/03/20 08:01 Losartan 25 Mg Tab PO 25 mg BID DO Administration Melatonin 3 mg 05/02/20 21:00 05/02/20 21:10 Melatonin 3 Mg Tab PO 3 mg HS DO Administration Pantoprazole Sodium 40 mg 05/03/20 09:00 05/03/20 08:01 Pantoprazole 40 Mg Tab PO 40 mg DAILY DO Administration Zinc Sulfate 220 mg 05/03/20 09:00 05/03/20 08:01 Zinc Sulfate 220 Mg Cap PO 220 mg DAILY DO Administration Hospitalist Exam Vitals: Vital Signs (12 hours) Temp Pulse Resp BP BP Pulse Ox 05/03/20 08:32 98.7 F 77 20 128/71 94 L 05/03/20 04:20 69 18 124/78 96 05/02/20 23:40 97.6 F 72 18 105/70 95 Weight Weight 172 lb General Appearance: NAD, awake alert Eye: PERRL, anicteric sclera ENT: normocephalic atraumatic, no oropharyngeal lesions Neck: supple, symmetric, no JVD, no thyromegaly Heart: RRR, no murmur, no gallops, no rubs Respiratory: CTAB, no wheezes, no rales Gastrointestinal: soft, non-tender, non-distended, normal bowel sounds Neurological: cranial nerve grossly intact, normal sensation to touch Psychiatric: normal affect, normal behavior, A&O x 3 Hosp A/P - Plan #1. Acute respiratory failure with hypoxia. We will continue O2 supplementation. Acute respiratory failure likely related to COVID-19 pneumonia. 2. COVID-19 pneumonia. Concern for superimposed bacterial pneumonia as well. We will start her on empiric antibiotics. Cultures are collected. She had a positive blood culture a few days on a recent ER visit. This showed gram-positive rods. We will continue the antibiotic pending culture information being finalized. #3. Diabetes type 2. Continue sliding scale coverage.
[2020-05-03] MEDS: Atorvastatin Calcium 20 MG TAB PO SCH (21:26)
[2020-05-03] MEDS: Melatonin 3 MG TAB PO SCH (21:27)
[2020-05-04] MEDS ORDERED: Levothyroxine Sodium 50 MCG TAB ONE (05:21)
[2020-05-04] MEDS ORDERED: Ascorbic Acid 500 mg Chewable Tablet ONE (08:32)
[2020-05-04] MEDS ORDERED: Losartan 25 MG TAB ONE (08:32)
[2020-05-04] MEDS ORDERED: Zinc Sulfate 220 MG CAP ONE (08:32)
[2020-05-04] MEDS ORDERED: Enoxaparin Sodium 40 MG/0.4 ML SYRINGE ONE (08:32)
[2020-05-04] MEDS ORDERED: Amlodipine 10 MG TAB ONE (08:32)
[2020-05-04] MEDS ORDERED: Calcium Carbonate 600 MG + Vit D TAB ONE (08:32)
[2020-05-04] MEDS ORDERED: Cefepime 2 GM VIAL ONE (08:32)
[2020-05-04] MEDS ORDERED: Carvedilol 6.25 MG TAB ONE ×2 (08:32→15:31)
[2020-05-04] MEDS ORDERED: Gabapentin 300 MG CAP ONE ×2 (08:32→15:31)
[2020-05-04] MEDS ORDERED: Aspirin 81 mg Enteric Coated Tablet ONE (08:32)
[2020-05-04] MEDS ORDERED: Dexamethasone 4 MG TAB ONE (09:11)
[2020-05-04] MEDS: Carvedilol 6.25 MG TAB PO SCH ×2 (09:13→16:34)
[2020-05-04] MEDS: Ascorbic Acid 500 mg Chewable Tablet PO SCH (09:13)
[2020-05-04] MEDS: Gabapentin 300 MG CAP PO SCH ×3 (09:13→22:06)
[2020-05-04] MEDS: Dexamethasone 4 MG TAB PO SCH (09:13)
[2020-05-04] MEDS: Enoxaparin Sodium 40 MG/0.4 ML SYRINGE SC SCH (09:13)
[2020-05-04] MEDS: Calcium Carbonate 600 MG + Vit D TAB PO SCH (09:13)
[2020-05-04] MEDS: Amlodipine 10 MG TAB PO SCH (09:13)
[2020-05-04] MEDS: Aspirin 81 mg Enteric Coated Tablet PO SCH (09:13)
[2020-05-04] MEDS: Losartan 25 MG TAB PO SCH ×2 (09:13→22:06)
[2020-05-04] MEDS: Zinc Sulfate 220 MG CAP PO SCH (09:18)
[2020-05-04] MEDS ORDERED: Ondansetron ODT 4 MG TAB ONE (09:37)
[2020-05-04] MEDS: Ondansetron ODT 4 MG TAB PO PRN (09:38)
[2020-05-04] MEDS: Cefepime 2 GM in Sodium Chloride 0.9% 100 ML IVPB SCH ×2 (11:01→22:07)
[2020-05-04] MEDS: Cholecalciferol 1,000 UNITS (25 MCG) TAB PO SCH (11:18)
[2020-05-04] MEDS: Hydrochlorothiazide 25 MG TAB PO SCH (11:18)
--- NOTE | 2020-05-04 14:00 | PDOC.HOSPP ---
- Subjective Encounter Date: 05/04/20 Encounter Time: 13:58 Subjective: Ms Roland seems to be about same. She was admitted to the hospital due to generalized weakness and worsening respiratory issues. She has a recent diagnosis of COVID-19 pneumonia. She was not a candidate for remdesivir when she was admitted. She is still Requiring O2 via NC. Still coughing but no sputum. No fever has been reported. Urine cultures growing E. coli and she is appropriately on antibiotics. - Objective Vital Signs & Weight: Vital Signs (12 hours) Temp Pulse Resp BP Pulse Ox 05/04/20 08:40 97.9 F 74 20 144/77 H 96 Weight Weight 172 lb Result Diagrams: 05/03/20 06:15 05/03/20 06:15 Radiology Reviewed by me: Yes EKG Reviewed by me: Yes Hospitalist ROS - Review of Systems Respiratory: reports: cough, dry, shortness of breath, wheezing Gastrointestinal: reports: nausea Neurological: reports: weakness, numbness - Medication Medications: Active Medications Generic Name Dose Route Start Last Admin Trade Name Ruizq PRN Reason Stop Dose Admin Amlodipine Besylate 10 mg 05/03/20 09:00 05/03/20 08:01 Amlodipine 10 Mg Tab PO 10 mg DAILY DO Administration Ascorbic Acid 1,000 mg 05/03/20 09:00 05/03/20 08:01 Ascorbic Acid 500 Mg Chewable Tablet PO 1,000 mg DAILY DO Administration Aspirin 81 mg 05/03/20 09:00 05/03/20 08:02 Aspirin 81 Mg Enteric Coated Tablet PO 81 mg DAILY DO Administration Atorvastatin Calcium 20 mg 05/02/20 21:00 05/03/20 21:26 Atorvastatin Calcium 20 Mg Tab PO 20 mg HS DO Administration Calcium/Vitamin D 1 tab 05/03/20 09:00 05/03/20 08:02 Calcium Carbonate 600 Mg + Vit D Tab PO 1 tab DAILY DO Administration Carvedilol 6.25 mg 05/03/20 08:00 05/03/20 17:08 Carvedilol 6.25 Mg Tab PO 6.25 mg BID-WM DO Administration Cholecalciferol 5,000 units 05/03/20 09:00 05/03/20 08:00 Cholecalciferol 1,000 Units (25 Mcg) Tab PO 5,000 units DAILY DO Administration Enoxaparin Sodium 40 mg 05/03/20 09:00 05/03/20 08:03 Enoxaparin Sodium 40 Mg/0.4 Ml Syringe SC 40 mg 0900 DO Administration Gabapentin 300 mg 05/02/20 21:00 05/03/20 21:27 Gabapentin 300 Mg Cap PO 300 mg TID DO Administration Hydrochlorothiazide 25 mg 05/03/20 09:00 05/03/20 08:01 Hydrochlorothiazide 25 Mg Tab PO 25 mg DAILY DO Administration Cefepime HCl 2 gm/ Sodium 100 mls @ 200 mls/hr 05/03/20 11:00 05/03/20 22:09 Chloride IVPB 100 mls 1100,2300 DO Administration Levothyroxine Sodium 50 mcg 05/03/20 06:00 05/03/20 05:10 Levothyroxine Sodium 50 Mcg Tab PO 50 mcg 0600 DO Administration Losartan Potassium 25 mg 05/02/20 21:00 05/03/20 21:27 Losartan 25 Mg Tab PO 25 mg BID DO Administration Melatonin 3 mg 05/02/20 21:00 05/03/20 21:27 Melatonin 3 Mg Tab PO 3 mg HS DO Administration Pantoprazole Sodium 40 mg 05/03/20 09:00 05/03/20 08:01 Pantoprazole 40 Mg Tab PO 40 mg DAILY DO Administration Zinc Sulfate 220 mg 05/03/20 09:00 05/03/20 08:01 Zinc Sulfate 220 Mg Cap PO 220 mg DAILY DO Administration Hospitalist Exam Vitals: Vital Signs (12 hours) Temp Pulse Resp BP Pulse Ox 05/04/20 08:40 97.9 F 74 20 144/77 H 96 Weight Weight 172 lb General Appearance: NAD, awake alert Eye: PERRL, anicteric sclera ENT: normocephalic atraumatic, no oropharyngeal lesions Neck: supple, symmetric, no JVD, no lymphadenopathy Heart: RRR, no murmur, no gallops, no rubs, normal peripheral pulses Respiratory: CTAB, no wheezes, no rales, no ronchi, normal chest expansion Gastrointestinal: soft, non-tender, non-distended, normal bowel sounds, no palpable masses Neurological: cranial nerve grossly intact, normal sensation to touch Psychiatric: normal affect, normal behavior, A&O x 3 Hosp A/P (1) UTI (urinary tract infection) Status: Acute (2) Pneumonia due to COVID-19 virus Code(s): U07.1 - COVID-19; J12.82 - PNEUMONIA DUE TO CORONAVIRUS DISEASE 2019 Status: Acute (3) Acute respiratory failure with hypoxia Code(s): J96.01 - ACUTE RESPIRATORY FAILURE WITH HYPOXIA Status: Acute Plan: Secondary to COVID-19 pneumonia. Continue O2 supplementation as needed. - Plan old records reviewed/req, PT/OT, respiratory therapy, incentive spirometry, out of bed/ambulate #1. Acute respiratory failure with hypoxia. We will continue O2 supplementation. Acute respiratory failure likely related to COVID-19 pneumonia. 2. COVID-19 pneumonia. Concern for superimposed bacterial pneumonia as well. We will start her on empiric antibiotics. Cultures are collected. She had a positive blood culture a few days on a recent ER visit. This showed gram-positive rods. We will continue the antibiotic pending culture information being finalized. #3. Diabetes type 2. Continue sliding scale coverage.
[2020-05-04] MEDS: Levothyroxine Sodium 50 MCG TAB PO SCH (15:32)
[2020-05-04 17:36] LABS: Anion Gap 17 mmol/L (10-20); BUN (Urea Nitrogen) 12 mg/dL (9.8-20.1); Calc. Creatinine Clearance 102 mL/min (70-130); Carbon Dioxide 24 mmol/L (23-31); Chloride 107 mmol/L (98-107); Glucose 159 mg/dL (80-115); Potassium 4.6 mmol/L (3.5-5.1); Sodium 143 mmol/L (136-145)
[2020-05-04 18:27] LABS: #Lymphocytes 0.8 thou/uL (1.20-3.40); #Monocytes 0.3 thou/uL (0.11-0.59); #Neutrophils 4.5 thou/uL (1.40-6.50); %Basophils 0.2 % (0.0-1.0); %Eosinophils 0.1 % (0.0-10.0); %Lymphocytes 14.4 % (21.0-51.0); %Monocytes 5.8 % (0.0-10.0); %Neutrophils 79.5 % (42.0-75.0); Hemoglobin 13.5 g/dL (12.0-16.0); Mean Corpuscular HGB CONC 32.9 g/dL (32.0-36.0); Mean Corpuscular Hemoglobin 28.3 pg (27.0-31.0); Mean Corpuscular Volume 86.1 fL (78.0-98.0); Mean Platelet Volume 10.1 fL (7.4-10.4); Platelet Count 157 thou/uL (130-400); RBC Distribution Width 12.3 % (11.5-14.5); Red Blood Cell (RBC) Count 4.76 mill/uL (4.20-5.40); White Blood Cell (WBC) Count 5.7 thou/uL (4.8-10.8)
[2020-05-04] MEDS: Atorvastatin Calcium 20 MG TAB PO SCH (22:06)
[2020-05-04] MEDS: Melatonin 3 MG TAB PO SCH (22:06)
[2020-05-05] MEDS: Levothyroxine Sodium 50 MCG TAB PO SCH (05:40)
[2020-05-05] MEDS: Carvedilol 6.25 MG TAB PO SCH ×3 (08:19→17:51)
[2020-05-05] MEDS: Losartan 25 MG TAB PO SCH ×3 (08:19→22:03)
[2020-05-05] MEDS: Zinc Sulfate 220 MG CAP PO SCH (08:19)
[2020-05-05] MEDS: Hydrochlorothiazide 25 MG TAB PO SCH ×2 (08:20→14:20)
[2020-05-05] MEDS: Calcium Carbonate 600 MG + Vit D TAB PO SCH (08:20)
[2020-05-05] MEDS: Aspirin 81 mg Enteric Coated Tablet PO SCH (08:20)
[2020-05-05] MEDS: Dexamethasone 4 MG TAB PO SCH (08:20)
[2020-05-05] MEDS: Ascorbic Acid 500 mg Chewable Tablet PO SCH (08:20)
[2020-05-05] MEDS: Cholecalciferol 1,000 UNITS (25 MCG) TAB PO SCH (08:21)
[2020-05-05] MEDS: Gabapentin 300 MG CAP PO SCH ×3 (08:23→22:03)
[2020-05-05] MEDS: Amlodipine 10 MG TAB PO SCH ×2 (08:23→14:20)
[2020-05-05] MEDS: Enoxaparin Sodium 40 MG/0.4 ML SYRINGE SC SCH (08:25)
[2020-05-05] MEDS: Ondansetron ODT 4 MG TAB PO PRN (08:43)
[2020-05-05] MEDS: Benzonatate 100 MG CAP PO PRN ×2 (08:43→17:51)
[2020-05-05] MEDS: Cefepime 2 GM in Sodium Chloride 0.9% 100 ML IVPB SCH ×2 (13:09→22:04)
--- NOTE | 2020-05-05 15:02 | PDOC.HOSPP ---
- Subjective Encounter Date: 05/05/20 Encounter Time: 15:01 Subjective: Patient was seen and evaluated today. She is on 4 L of oxygen and saturation appears stable. She is a 65-year-old diagnosed with COVID-19 pneumonia who presented to the hospital with generalized weakness and adult failure to thrive. She is on empiric IV antibiotic. She was not a candidate for remdesivir when she was admitted. - Objective Vital Signs & Weight: Vital Signs (12 hours) Temp Pulse Resp BP Pulse Ox 05/05/20 12:00 97.6 F 66 20 144/84 H 94 L 05/05/20 07:15 97.8 F 57 L 20 117/62 95 05/05/20 04:00 97.8 F 66 20 111/59 L 97 Weight Admit Weight 172 lb Weight 172 lb I&O: 05/04/20 05/05/20 05/06/20 06:59 06:59 06:59 Intake Total 237 Balance 237 Result Diagrams: 05/07/20 06:00 05/07/20 06:00 Radiology Reviewed by me: Yes EKG Reviewed by me: Yes Hospitalist ROS - Review of Systems Constitutional: reports: weakness, malaise Respiratory: reports: shortness of breath Gastrointestinal: reports: nausea Neurological: reports: weakness - Medication Medications: Active Medications Generic Name Dose Route Start Last Admin Trade Name Freq PRN Reason Stop Dose Admin Amlodipine Besylate 10 mg 05/03/20 09:00 05/05/20 14:20 Amlodipine 10 Mg Tab PO 10 mg DAILY DO Administration Ascorbic Acid 1,000 mg 05/03/20 09:00 05/05/20 08:20 Ascorbic Acid 500 Mg Chewable Tablet PO 1,000 mg DAILY DO Administration Aspirin 81 mg 05/03/20 09:00 05/05/20 08:20 Aspirin 81 Mg Enteric Coated Tablet PO 81 mg DAILY DO Administration Atorvastatin Calcium 20 mg 05/02/20 21:00 05/04/20 22:06 Atorvastatin Calcium 20 Mg Tab PO 20 mg HS DO Administration Benzonatate 100 mg 05/02/20 18:51 05/05/20 08:43 Benzonatate 100 Mg Cap PO 100 mg TIDPRN PRN Administration Cough Calcium/Vitamin D 1 tab 05/03/20 09:00 05/05/20 08:20 Calcium Carbonate 600 Mg + Vit D Tab PO 1 tab DAILY DO Administration Carvedilol 6.25 mg 05/03/20 08:00 05/04/20 16:34 Carvedilol 6.25 Mg Tab PO 6.25 mg BID-WM DO Administration Cholecalciferol 5,000 units 05/03/20 09:00 05/05/20 08:21 Cholecalciferol 1,000 Units (25 Mcg) Tab PO 5,000 units DAILY DO Administration Dexamethasone 4 mg 05/04/20 08:00 05/05/20 08:20 Dexamethasone 4 Mg Tab PO 4 mg QAM-WM DO Administration Enoxaparin Sodium 40 mg 05/03/20 09:00 05/05/20 08:25 Enoxaparin Sodium 40 Mg/0.4 Ml Syringe SC 40 mg 0900 DO Administration Gabapentin 300 mg 05/02/20 21:00 05/05/20 14:20 Gabapentin 300 Mg Cap PO 300 mg TID DO Administration Hydrochlorothiazide 25 mg 05/03/20 09:00 05/05/20 14:20 Hydrochlorothiazide 25 Mg Tab PO 25 mg DAILY DO Administration Cefepime HCl 2 gm/ Sodium 100 mls @ 200 mls/hr 05/03/20 11:00 05/05/20 13:09 Chloride IVPB 100 mls 1100,2300 DO Administration Levothyroxine Sodium 50 mcg 05/03/20 06:00 05/05/20 05:40 Levothyroxine Sodium 50 Mcg Tab PO 50 mcg 0600 DO Administration Losartan Potassium 25 mg 05/02/20 21:00 05/04/20 22:06 Losartan 25 Mg Tab PO 25 mg BID DO Administration Melatonin 3 mg 05/02/20 21:00 05/04/20 22:06 Melatonin 3 Mg Tab PO 3 mg HS DO Administration Ondansetron HCl 4 mg 05/02/20 18:48 05/05/20 08:43 Ondansetron Odt 4 Mg Tab PO 4 mg Q6H PRN Administration Nausea/Vomiting Pantoprazole Sodium 40 mg 05/03/20 09:00 05/05/20 08:21 Pantoprazole 40 Mg Tab PO 40 mg DAILY DO Administration Zinc Sulfate 220 mg 05/03/20 09:00 05/05/20 08:19 Zinc Sulfate 220 Mg Cap PO 220 mg DAILY DO Administration Hospitalist Exam Vitals: Vital Signs (12 hours) Temp Pulse Resp BP Pulse Ox 05/05/20 12:00 97.6 F 66 20 144/84 H 94 L 05/05/20 07:15 97.8 F 57 L 20 117/62 95 05/05/20 04:00 97.8 F 66 20 111/59 L 97 Weight Admit Weight 172 lb Weight 172 lb General Appearance: NAD, awake alert, ill appearing Eye: PERRL, anicteric sclera ENT: normocephalic atraumatic, no oropharyngeal lesions Neck: supple, symmetric, no JVD Heart: RRR, no murmur Respiratory: CTAB, no wheezes Gastrointestinal: soft, non-tender Neurological: cranial nerve grossly intact Psychiatric: normal affect Hosp A/P (1) UTI (urinary tract infection) Status: Acute (2) Pneumonia due to COVID-19 virus Code(s): U07.1 - COVID-19; J12.82 - PNEUMONIA DUE TO CORONAVIRUS DISEASE 2018 Status: Acute (3) Acute respiratory failure with hypoxia Code(s): J96.01 - ACUTE RESPIRATORY FAILURE WITH HYPOXIA Status: Acute - Plan old records reviewed/req, PT/OT, respiratory therapy, incentive spirometry #1. Acute respiratory failure with hypoxia. We will continue O2 supplementation. Acute respiratory failure likely related to COVID-19 pneumonia. 2. COVID-19 pneumonia. Concern for superimposed bacterial pneumonia as well. We will start her on empiric antibiotics. Cultures are collected. She had a positive blood culture a few days on a recent ER visit. This showed gram-positive rods. We will continue the antibiotic pending culture information being finalized. 05/07/2020. The patient continues to do well. She is on O2 via nasal cannula. Her main complaint right now appears to be dizziness whenever she attempts to getting out. #3. Diabetes type 2. Continue sliding scale coverage. #4. Epistaxis Patient developed nasal bleeding that started today. I suspect this to be secondary to the anticoagulation as she is on Lovenox twice daily. I am going to change this back to once daily. We will watch her H&H pretty close.
[2020-05-05] MEDS: Atorvastatin Calcium 20 MG TAB PO SCH (22:03)
[2020-05-05] MEDS: Melatonin 3 MG TAB PO SCH (22:03)
[2020-05-06] MEDS: Levothyroxine Sodium 50 MCG TAB PO SCH (05:38)
[2020-05-06] MEDS: Hydrochlorothiazide 25 MG TAB PO SCH (08:55)
[2020-05-06] MEDS: Zinc Sulfate 220 MG CAP PO SCH (08:55)
[2020-05-06] MEDS: Aspirin 81 mg Enteric Coated Tablet PO SCH (08:55)
[2020-05-06] MEDS: Enoxaparin Sodium 40 MG/0.4 ML SYRINGE SC SCH (08:55)
[2020-05-06] MEDS: Gabapentin 300 MG CAP PO SCH ×3 (08:55→20:30)
[2020-05-06] MEDS: Calcium Carbonate 600 MG + Vit D TAB PO SCH (08:56)
[2020-05-06] MEDS: Cholecalciferol 1,000 UNITS (25 MCG) TAB PO SCH (08:57)
[2020-05-06] MEDS: Losartan 25 MG TAB PO SCH ×2 (08:57→20:29)
[2020-05-06] MEDS: Dexamethasone 4 MG TAB PO SCH (08:57)
[2020-05-06] MEDS: Ascorbic Acid 500 mg Chewable Tablet PO SCH (08:57)
[2020-05-06] MEDS: Carvedilol 6.25 MG TAB PO SCH ×2 (09:00→16:13)
[2020-05-06] MEDS: Amlodipine 10 MG TAB PO SCH (09:05)
[2020-05-06] MEDS: Cefepime 2 GM in Sodium Chloride 0.9% 100 ML IVPB SCH (10:26)
--- NOTE | 2020-05-06 17:06 | PDOC.HOSPP ---
- Subjective Encounter Date: 05/06/20 Encounter Time: 17:04 Subjective: The patient's main complaint today appears to be constipation. She is saturating well on nasal cannula. I believe overall she is mildly improved and we will continue current management plan. - Objective Vital Signs & Weight: Vital Signs (12 hours) Temp Pulse Resp BP BP Pulse Ox 05/06/20 16:13 127/81 05/06/20 15:39 98 F 64 19 127/81 97 05/06/20 11:40 97.6 F 64 18 126/83 92 L 05/06/20 09:05 71 05/06/20 09:00 130/71 05/06/20 08:50 89 L Weight Admit Weight 172 lb Weight 172 lb I&O: 05/05/20 05/06/20 05/07/20 06:59 06:59 06:59 Intake Total 237 Balance 237 Result Diagrams: 05/04/20 05:49 05/04/20 05:49 Radiology Reviewed by me: Yes EKG Reviewed by me: Yes Hospitalist ROS - Review of Systems Respiratory: reports: shortness of breath, SOB with excertion Gastrointestinal: reports: nausea Neurological: reports: weakness - Medication Medications: Active Medications Generic Name Dose Route Start Last Admin Trade Name Freq PRN Reason Stop Dose Admin Amlodipine Besylate 10 mg 05/03/20 09:00 05/06/20 09:05 Amlodipine 10 Mg Tab PO 10 mg DAILY DO Administration Ascorbic Acid 1,000 mg 05/03/20 09:00 05/06/20 08:57 Ascorbic Acid 500 Mg Chewable Tablet PO 1,000 mg DAILY DO Administration Aspirin 81 mg 05/03/20 09:00 05/06/20 08:55 Aspirin 81 Mg Enteric Coated Tablet PO 81 mg DAILY DO Administration Atorvastatin Calcium 20 mg 05/02/20 21:00 05/05/20 22:03 Atorvastatin Calcium 20 Mg Tab PO 20 mg HS DO Administration Benzonatate 100 mg 05/02/20 18:51 05/05/20 17:51 Benzonatate 100 Mg Cap PO 100 mg TIDPRN PRN Administration Cough Calcium/Vitamin D 1 tab 05/03/20 09:00 05/06/20 08:56 Calcium Carbonate 600 Mg + Vit D Tab PO 1 tab DAILY DO Administration Carvedilol 6.25 mg 05/03/20 08:00 05/06/20 16:13 Carvedilol 6.25 Mg Tab PO 6.25 mg BID-WM DO Administration Cholecalciferol 5,000 units 05/03/20 09:00 05/06/20 08:57 Cholecalciferol 1,000 Units (25 Mcg) Tab PO 5,000 units DAILY DO Administration Dexamethasone 4 mg 05/04/20 08:00 05/06/20 08:57 Dexamethasone 4 Mg Tab PO 4 mg QAM-WM DO Administration Enoxaparin Sodium 40 mg 05/03/20 09:00 05/06/20 08:55 Enoxaparin Sodium 40 Mg/0.4 Ml Syringe SC 40 mg 0900 DO Administration Gabapentin 300 mg 05/02/20 21:00 05/06/20 14:42 Gabapentin 300 Mg Cap PO 300 mg TID DO Administration Hydrochlorothiazide 25 mg 05/03/20 09:00 05/06/20 08:55 Hydrochlorothiazide 25 Mg Tab PO 25 mg DAILY DO Administration Cefepime HCl 2 gm/ Sodium 100 mls @ 200 mls/hr 05/03/20 11:00 05/06/20 10:26 Chloride IVPB 100 mls 1100,2300 DO Administration Levothyroxine Sodium 50 mcg 05/03/20 06:00 05/06/20 05:38 Levothyroxine Sodium 50 Mcg Tab PO 50 mcg 0600 DO Administration Losartan Potassium 25 mg 05/02/20 21:00 05/06/20 08:57 Losartan 25 Mg Tab PO 25 mg BID DO Administration Melatonin 3 mg 05/02/20 21:00 05/05/20 22:03 Melatonin 3 Mg Tab PO 3 mg HS DO Administration Ondansetron HCl 4 mg 05/02/20 18:48 05/05/20 08:43 Ondansetron Odt 4 Mg Tab PO 4 mg Q6H PRN Administration Nausea/Vomiting Pantoprazole Sodium 40 mg 05/03/20 09:00 05/06/20 08:55 Pantoprazole 40 Mg Tab PO 40 mg DAILY DO Administration Zinc Sulfate 220 mg 05/03/20 09:00 05/06/20 08:55 Zinc Sulfate 220 Mg Cap PO 220 mg DAILY DO Administration Hospitalist Exam Vitals: Vital Signs (12 hours) Temp Pulse Resp BP BP Pulse Ox 05/06/20 16:13 127/81 05/06/20 15:39 98 F 64 19 127/81 97 05/06/20 11:40 97.6 F 64 18 126/83 92 L 05/06/20 09:05 71 05/06/20 09:00 130/71 05/06/20 08:50 89 L Weight Admit Weight 172 lb Weight 172 lb General Appearance: NAD, awake alert Eye: PERRL ENT: normocephalic atraumatic Neck: supple, symmetric, no JVD Heart: RRR Respiratory: CTAB, no wheezes Gastrointestinal: soft, non-tender Neurological: cranial nerve grossly intact Psychiatric: normal affect, normal behavior Hosp A/P (1) Acute respiratory failure with hypoxia Code(s): J96.01 - ACUTE RESPIRATORY FAILURE WITH HYPOXIA Status: Acute (2) Pneumonia due to COVID-19 virus Code(s): U07.1 - COVID-19; J12.82 - PNEUMONIA DUE TO CORONAVIRUS DISEASE 2019 Status: Acute (3) E. coli UTI (urinary tract infection) Code(s): N39.0 - URINARY TRACT INFECTION, SITE NOT SPECIFIED; B96.20 - UNSP ESCHERICHIA COLI THE CAUSE OF DISEASES CLASSD ELSWHR Status: Acute - Plan #1. Acute respiratory failure with hypoxia. We will continue O2 supplementation. Acute respiratory failure likely related to COVID-19 pneumonia. 05/06/2020. The patient remains on O2 via nasal cannula and she seems to be stable. Her saturation is around 92 to 93%. 2. COVID-19 pneumonia. Concern for superimposed bacterial pneumonia as well. We will start her on empiric antibiotics. Cultures are collected. She had a positive blood culture a few days on a recent ER visit. This showed gram-positive rods. We will continue the antibiotic pending culture information being finalized. 05/06/2020. The patient will continue on antibiotics for now. Blood culture collected grew out Corynebacterium species. #3. Diabetes type 2. Continue sliding scale coverage. #4. E. coli UTI Urine cultures growing E. coli. She is on cefepime for Covid pneumonia and this will cover for E. coli.
[2020-05-06] MEDS: Atorvastatin Calcium 20 MG TAB PO SCH (20:30)
[2020-05-06] MEDS: Melatonin 3 MG TAB PO SCH (20:30)
[2020-05-06] MEDS: Enoxaparin Sodium 60 MG/0.6 ML SYRINGE SC SCH (20:30)
[2020-05-07] MEDS: Cefepime 2 GM in Sodium Chloride 0.9% 100 ML IVPB SCH ×2 (00:14→11:32)
[2020-05-07] MEDS: Levothyroxine Sodium 50 MCG TAB PO SCH (05:42)
[2020-05-07 06:17] LABS: #Lymphocytes 1.1 thou/uL (1.20-3.40); #Monocytes 0.5 thou/uL (0.11-0.59); #Neutrophils 3.7 thou/uL (1.40-6.50); %Basophils 0.3 % (0.0-1.0); %Eosinophils 0.3 % (0.0-10.0); %Lymphocytes 20.5 % (21.0-51.0); %Monocytes 10.1 % (0.0-10.0); %Neutrophils 68.8 % (42.0-75.0); Hemoglobin 13.8 g/dL (12.0-16.0); Mean Corpuscular HGB CONC 35.1 g/dL (32.0-36.0); Mean Corpuscular Volume 85.5 fL (78.0-98.0); Mean Platelet Volume 9.1 fL (7.4-10.4); Platelet Count 189 thou/uL (130-400); RBC Distribution Width 11.5 % (11.5-14.5); Red Blood Cell (RBC) Count 4.61 mill/uL (4.20-5.40); White Blood Cell (WBC) Count 5.4 thou/uL (4.8-10.8)
[2020-05-07 06:35] LABS: Anion Gap 14 mmol/L (10-20); BUN (Urea Nitrogen) 12 mg/dL (9.8-20.1); Calc. Creatinine Clearance 110 mL/min (70-130); Calcium 8.6 mg/dL (7.8-10.44); Carbon Dioxide 27 mmol/L (23-31); Chloride 102 mmol/L (98-107); Glucose 174 mg/dL (80-115); Potassium 4.1 mmol/L (3.5-5.1); Sodium 139 mmol/L (136-145)
[2020-05-07] MEDS: Enoxaparin Sodium 60 MG/0.6 ML SYRINGE SC SCH (09:09)
[2020-05-07] MEDS: Aspirin 81 mg Enteric Coated Tablet PO SCH (09:10)
[2020-05-07] MEDS: Benzonatate 100 MG CAP PO PRN (09:10)
[2020-05-07] MEDS: Guaifenesin DM 100-10/5 ML UDCUP PO PRN (09:10)
[2020-05-07] MEDS: Milk Of Magnesia 30 ML UDCUP PO PRN (09:10)
[2020-05-07] MEDS: Calcium Carbonate 600 MG + Vit D TAB PO SCH (09:10)
[2020-05-07] MEDS: Cholecalciferol 1,000 UNITS (25 MCG) TAB PO SCH (09:10)
[2020-05-07] MEDS: Zinc Sulfate 220 MG CAP PO SCH (09:11)
[2020-05-07] MEDS: Hydrochlorothiazide 25 MG TAB PO SCH (09:11)
[2020-05-07] MEDS: Carvedilol 6.25 MG TAB PO SCH ×2 (09:11→16:51)
[2020-05-07] MEDS: Bisacodyl 5 MG TAB PO PRN (09:12)
[2020-05-07] MEDS: Ascorbic Acid 500 mg Chewable Tablet PO SCH (09:12)
[2020-05-07] MEDS: Acetaminophen 325 MG TAB PO PRN (09:12)
[2020-05-07] MEDS: Losartan 25 MG TAB PO SCH ×2 (09:13→20:57)
[2020-05-07] MEDS: Dexamethasone 4 MG TAB PO SCH (09:13)
[2020-05-07] MEDS: Gabapentin 300 MG CAP PO SCH ×3 (09:13→20:57)
[2020-05-07] MEDS: Amlodipine 10 MG TAB PO SCH (09:13)
--- NOTE | 2020-05-07 16:04 | PDOC.HOSPP ---
- Subjective Encounter Date: 05/07/20 Encounter Time: 16:02 Subjective: The patient is reporting nasal bleed after we increased anticoagulation to twice daily. She otherwise seems to be doing reasonably well. We will continue current management plan. - Objective Vital Signs & Weight: Vital Signs (12 hours) Temp Pulse Resp BP BP BP Pulse Ox 05/07/20 15:27 98.8 F 65 16 123/82 96 05/07/20 12:00 98.3 F 58 L 16 125/75 95 05/07/20 09:13 64 05/07/20 09:11 127/81 05/07/20 08:00 96 05/07/20 07:23 98.3 F 64 17 120/78 96 05/07/20 04:45 98.5 F 70 17 131/72 93 L Weight Admit Weight 172 lb Weight 172 lb Result Diagrams: 05/07/20 06:00 05/07/20 06:00 Radiology Reviewed by me: Yes EKG Reviewed by me: Yes Hospitalist ROS - Review of Systems Constitutional: reports: weakness Gastrointestinal: reports: nausea Neurological: reports: weakness - Medication Medications: Active Medications Generic Name Dose Route Start Last Admin Trade Name Freq PRN Reason Stop Dose Admin Acetaminophen 650 mg 05/02/20 18:48 05/07/20 09:12 Acetaminophen 325 Mg Tab PO 650 mg Q4H PRN Administration Headache/Fever/Mild Pain (1-3) Amlodipine Besylate 10 mg 05/03/20 09:00 05/07/20 09:13 Amlodipine 10 Mg Tab PO 10 mg DAILY DO Administration Ascorbic Acid 1,000 mg 05/03/20 09:00 05/07/20 09:12 Ascorbic Acid 500 Mg Chewable Tablet PO 1,000 mg DAILY DO Administration Aspirin 81 mg 05/03/20 09:00 05/07/20 09:10 Aspirin 81 Mg Enteric Coated Tablet PO 81 mg DAILY DO Administration Atorvastatin Calcium 20 mg 05/02/20 21:00 05/06/20 20:30 Atorvastatin Calcium 20 Mg Tab PO 20 mg HS DO Administration Benzonatate 100 mg 05/02/20 18:51 05/07/20 09:10 Benzonatate 100 Mg Cap PO 100 mg TIDPRN PRN Administration Cough Bisacodyl 10 mg 05/06/20 17:03 05/07/20 09:12 Bisacodyl 5 Mg Tab PO 10 mg DAILYPRN PRN Administration Constipation Calcium/Vitamin D 1 tab 05/03/20 09:00 05/07/20 09:10 Calcium Carbonate 600 Mg + Vit D Tab PO 1 tab DAILY DO Administration Carvedilol 6.25 mg 05/03/20 08:00 05/07/20 09:11 Carvedilol 6.25 Mg Tab PO 6.25 mg BID-WM DO Administration Cholecalciferol 5,000 units 05/03/20 09:00 05/07/20 09:10 Cholecalciferol 1,000 Units (25 Mcg) Tab PO 5,000 units DAILY DO Administration Dexamethasone 4 mg 05/04/20 08:00 05/07/20 09:13 Dexamethasone 4 Mg Tab PO 4 mg QAM-WM DO Administration Enoxaparin Sodium 60 mg 05/06/20 21:00 05/07/20 09:09 Enoxaparin Sodium 60 Mg/0.6 Ml Syringe SC 60 mg 0900,2100 DO Administration Gabapentin 300 mg 05/02/20 21:00 05/07/20 09:13 Gabapentin 300 Mg Cap PO 300 mg TID DO Administration Guaifenesin/Dextromethorphan 15 ml 05/02/20 18:48 05/07/20 09:10 Guaifenesin Dm 100-10/5 Ml Udcup PO 15 ml Q4H PRN Administration Cough Hydrochlorothiazide 25 mg 05/03/20 09:00 05/07/20 09:11 Hydrochlorothiazide 25 Mg Tab PO 25 mg DAILY DO Administration Cefepime HCl 2 gm/ Sodium 100 mls @ 200 mls/hr 05/03/20 11:00 05/07/20 11:32 Chloride IVPB 100 mls 1100,2300 DO Administration Levothyroxine Sodium 50 mcg 05/03/20 06:00 05/07/20 05:42 Levothyroxine Sodium 50 Mcg Tab PO 50 mcg 0600 DO Administration Losartan Potassium 25 mg 05/02/20 21:00 05/07/20 09:13 Losartan 25 Mg Tab PO 25 mg BID DO Administration Magnesium Hydroxide 30 ml 05/06/20 17:03 05/07/20 09:10 Milk Of Magnesia 30 Ml Udcup PO 30 ml DAILYPRN PRN Administration Constipation Melatonin 3 mg 05/02/20 21:00 05/06/20 20:30 Melatonin 3 Mg Tab PO 3 mg HS DO Administration Ondansetron HCl 4 mg 05/02/20 18:48 05/05/20 08:43 Ondansetron Odt 4 Mg Tab PO 4 mg Q6H PRN Administration Nausea/Vomiting Pantoprazole Sodium 40 mg 05/03/20 09:00 05/07/20 09:11 Pantoprazole 40 Mg Tab PO 40 mg DAILY DO Administration Zinc Sulfate 220 mg 05/03/20 09:00 05/07/20 09:11 Zinc Sulfate 220 Mg Cap PO 220 mg DAILY DO Administration Hospitalist Exam Vitals: Vital Signs (12 hours) Temp Pulse Resp BP BP BP Pulse Ox 05/07/20 15:27 98.8 F 65 16 123/82 96 05/07/20 12:00 98.3 F 58 L 16 125/75 95 05/07/20 09:13 64 05/07/20 09:11 127/81 05/07/20 08:00 96 05/07/20 07:23 98.3 F 64 17 120/78 96 05/07/20 04:45 98.5 F 70 17 131/72 93 L Weight Admit Weight 172 lb Weight 172 lb General Appearance: NAD Eye: PERRL, anicteric sclera ENT: normocephalic atraumatic, no oropharyngeal lesions Neck: supple Heart: RRR, no murmur Respiratory: normal chest expansion, no tachypnea, rhonchi, wheezes Gastrointestinal: soft, non-tender, non-distended Neurological: cranial nerve grossly intact, normal sensation to touch Psychiatric: normal affect, normal behavior, A&O x 3 Hosp A/P (1) UTI (urinary tract infection) Status: Acute (2) Pneumonia due to COVID-19 virus Code(s): U07.1 - COVID-19; J12.82 - PNEUMONIA DUE TO CORONAVIRUS DISEASE 2019 Status: Acute (3) Acute respiratory failure with hypoxia Code(s): J96.01 - ACUTE RESPIRATORY FAILURE WITH HYPOXIA Status: Acute - Plan #1. Acute respiratory failure with hypoxia. We will continue O2 supplementation. Acute respiratory failure likely related to COVID-19 pneumonia. 2. COVID-19 pneumonia. Concern for superimposed bacterial pneumonia as well. We will start her on em piric antibiotics. Cultures are collected. She had a positive blood culture a few days on a recent ER visit. This showed gram-positive rods. We will continue the antibiotic pending culture information being finalized. 05/07/2020. The patient continues to do well. She is on O2 via nasal cannula. Her main complaint right now appears to be dizziness whenever she attempts to getting out. #3. Diabetes type 2. Continue sliding scale coverage. #4. Epistaxis Patient developed nasal bleeding that started today. I suspect this to be secondary to the anticoagulation as she is on Lovenox twice daily. I am going to change this back to once daily. We will watch her H&H pretty close.
[2020-05-07] MEDS: Atorvastatin Calcium 20 MG TAB PO SCH (20:58)
[2020-05-07] MEDS: Melatonin 3 MG TAB PO SCH (20:58)
[2020-05-08] MEDS: Cefepime 2 GM in Sodium Chloride 0.9% 100 ML IVPB SCH ×3 (02:57→15:35)
[2020-05-08] MEDS: Levothyroxine Sodium 50 MCG TAB PO SCH (05:58)
[2020-05-08 06:16] LABS: #Basophils 0.1 thou/uL (0.0-0.2); #Lymphocytes 1.2 thou/uL (1.20-3.40); #Monocytes 0.6 thou/uL (0.11-0.59); #Neutrophils 4.3 thou/uL (1.40-6.50); %Basophils 0.9 % (0.0-1.0); %Eosinophils 0.3 % (0.0-10.0); %Lymphocytes 20.1 % (21.0-51.0); %Neutrophils 69.8 % (42.0-75.0); Hemoglobin 13.7 g/dL (12.0-16.0); Mean Corpuscular HGB CONC 33.7 g/dL (32.0-36.0); Mean Corpuscular Hemoglobin 28.5 pg (27.0-31.0); Mean Corpuscular Volume 84.5 fL (78.0-98.0); Mean Platelet Volume 8.8 fL (7.4-10.4); Platelet Count 238 thou/uL (130-400); RBC Distribution Width 11.6 % (11.5-14.5); Red Blood Cell (RBC) Count 4.83 mill/uL (4.20-5.40); White Blood Cell (WBC) Count 6.1 thou/uL (4.8-10.8)
[2020-05-08 06:38] LABS: Anion Gap 13 mmol/L (10-20); BUN (Urea Nitrogen) 16 mg/dL (9.8-20.1); CRP (Inflammatory) Less than 0.50 mg/dL (= or < 0.5); Calc. Creatinine Clearance 102 mL/min (70-130); Calcium 9.1 mg/dL (7.8-10.44); Carbon Dioxide 32 mmol/L (23-31); Chloride 99 mmol/L (98-107); Glucose 174 mg/dL (80-115); Potassium 4.8 mmol/L (3.5-5.1); Sodium 139 mmol/L (136-145)
[2020-05-08] MEDS: Milk Of Magnesia 30 ML UDCUP PO PRN (08:41)
[2020-05-08] MEDS: Benzonatate 100 MG CAP PO PRN (08:41)
[2020-05-08] MEDS: Guaifenesin DM 100-10/5 ML UDCUP PO PRN (08:41)
[2020-05-08] MEDS: Aspirin 81 mg Enteric Coated Tablet PO SCH (08:41)
[2020-05-08] MEDS: Zinc Sulfate 220 MG CAP PO SCH (08:42)
[2020-05-08] MEDS: Ascorbic Acid 500 mg Chewable Tablet PO SCH (08:42)
[2020-05-08] MEDS: Amlodipine 10 MG TAB PO SCH (08:42)
[2020-05-08] MEDS: Calcium Carbonate 600 MG + Vit D TAB PO SCH (08:42)
[2020-05-08] MEDS: Dexamethasone 4 MG TAB PO SCH (08:42)
[2020-05-08] MEDS: Cholecalciferol 1,000 UNITS (25 MCG) TAB PO SCH (08:42)
[2020-05-08] MEDS: Hydrochlorothiazide 25 MG TAB PO SCH (08:43)
[2020-05-08] MEDS: Gabapentin 300 MG CAP PO SCH ×2 (08:43→16:17)
[2020-05-08] MEDS: Bisacodyl 5 MG TAB PO PRN (08:43)
[2020-05-08] MEDS: Carvedilol 6.25 MG TAB PO SCH ×2 (08:43→16:17)
[2020-05-08] MEDS: Acetaminophen 325 MG TAB PO PRN (08:43)
[2020-05-08] MEDS: Losartan 25 MG TAB PO SCH (08:45)
[2020-05-08 16:25] VITALS: BP 160/73; TEMP 97.4
--- NOTE | 2020-05-08 16:29 | PDOC.DS.DS ---
Provider Date of Admission: 05/05/20 09:59 Date of Discharge: 05/08/20 Admitting Provider: Jeff Link MD Primary Care Physician: Dov Bradshaw MD Course Hospital Course: This patient is a 65-year-old female who was diagnosed with Covid 19 pneumonia about 14 days ago who presented to the hospital due to worsening symptoms. She reportedly was having a lot of dry cough and worsening shortness of breath. No fever has been reported however. She apparently since her diagnosis has had multiple emergency room visits. She was admitted this time for further stabilization. She was placed on O2 via nasal cannula and provided with supportive care. A review of her chest x-ray was suspicious for pneumonia and she did receive a couple days of intravenous antibiotics. At the time of her admission she was beyond the window to receive remdesivir and this was not given. The patient has remained on O2 and her saturation is above 97% on 3 L. I saw and evaluated her today and she is doing well. We discussed options for discharge today and I did speak with her daughter and provided counseling. The patient can be safely discharged home today as long as oxygen can be arranged. I did speak with the case management who contacted the family. The family will pay for oxygen for the patient to go home on. Resuscitation Status: 05/02/20 18:48 Resuscitation Status Routine Co-Sign Provider: Resuscitation Status: FULL: Full Resuscitation Discussed with: patient Additional comments: sonZeina at [phone] Lab Results: 05/08/20 06:02 05/08/20 06:02 Abnormal Lab Results - Last 48 hrs 05/07/20 06:00: Lymphocytes % 20.5 L, Monocytes % 10.1 H, Lymphocytes # 1.1 L 05/08/20 06:02: Carbon Dioxide 32 H 05/08/20 06:02: Lymphocytes % 20.1 L, Monocytes # 0.6 H 05/08/20 06:02: D-Dimer Less than 0.27 L Microbiology - Entire Visit 05/02/20 16:48 Urine clean catch Urine Culture - Final Presumptive Escherichia coli Vitals: Vital Signs (12 hours) Temp Pulse Resp BP BP Pulse Ox 05/08/20 16:24 97.4 F L 52 L 19 160/73 H 97 05/08/20 16:17 127/81 05/08/20 11:47 97.8 F 59 L 17 130/65 94 L 05/08/20 08:43 127/81 05/08/20 08:42 62 05/08/20 08:00 95 05/08/20 07:24 97.8 F 62 19 125/76 95 Weight Admit Weight 172 lb Weight 172 lb Physical Exam: The patient was seen and examined on the day of discharge. General Appearance: NAD Eye: PERRL, anicteric sclera ENT: normocephalic atraumatic, no oropharyngeal lesions Neck: supple, symmetric, no JVD Respiratory: CTAB, no wheezes, no rales Cardiovascular: RRR, no murmur, no gallops Gastrointestinal: soft, non-tender, non-distended Neurological: cranial nerve grossly intact, normal sensation to touch PSYCH: normal affect, normal behavior Problem (1) UTI (urinary tract infection) Status: Acute (2) Pneumonia due to COVID-19 virus Code(s): U07.1 - COVID-19; J12.82 - PNEUMONIA DUE TO CORONAVIRUS DISEASE 2019 Status: Acute (3) Acute respiratory failure with hypoxia Code(s): J96.01 - ACUTE RESPIRATORY FAILURE WITH HYPOXIA Status: Acute Plan Prescriptions: Cefdinir [Omnicef] 300 mg PO Q12HR #14 cap Dexamethasone [Decadron] 4 mg PO QA- #8 tab Benzonatate [Tessalon] 100 mg PO TID #30 cap Zinc Sulfate 220 mg PO DAILY #30 cap Home Medications: Medication Instructions Recorded Confirmed Type Amlodipine Besylate [amLODIPine 10 mg PO DAILY 11/14/13 05/03/20 History Besylate] Calcium Carbonate/Vitamin D3 1 tablet PO DAILY 11/14/13 05/03/20 History [Calcium 600-Vit D3 400 Tablet] Hydrochlorothiazide 25 mg PO DAILY 11/14/13 05/03/20 History Levothyroxine Sodium 50 mcg PO DAILY 11/14/13 05/03/20 History Multivitamin With Minerals [One 1 tablet PO DAILY 11/14/13 05/03/20 History Daily 50 Plus] Carvedilol 6.25 mg PO BID-WM 05/20/17 05/03/20 History Gabapentin 300 mg PO TID 05/20/17 05/03/20 History Losartan [Cozaar] 25 mg PO DAILY 05/20/17 05/03/20 History Meloxicam 15 mg PO DAILY PRN 05/20/17 05/03/20 History Aspirin [Ecotrin Low Strength] 81 mg PO DAILY #30 tab 05/22/17 05/03/20 Rx Atorvastatin Calcium [Lipitor] 20 mg PO HS #30 tab 05/22/17 05/03/20 Rx DULoxetine [Cymbalta] 60 mg PO BID 05/03/20 05/03/20 History Benzonatate [Tessalon] 100 mg PO TID #30 cap 05/08/20 Rx Cefdinir [Omnicef] 300 mg PO Q12HR #14 cap 05/08/20 Rx Cholecalciferol [Vitamin D3] 5,000 units PO DAILY tab 05/08/20 Rx Dexamethasone [Decadron] 4 mg PO QAM-WM #8 tab 05/08/20 Rx Zinc Sulfate 220 mg PO DAILY #30 cap 05/08/20 Rx Allergies: No Known Allergies Allergy (Verified 06/09/19 12:43) Activity:: Activity as Tolerated Nourishment:: No Restrictions Referrals: Dov Bradshaw MD [Primary Care Provider] - 7 Days Disposition: HOME Quality CORE MEASURES:: N/A
--- NOTE | 2020-05-09 17:31 | EKG ---
Test Reason : Blood Pressure : / mmHG Vent. Rate : 080 BPM Atrial Rate : 080 BPM P-R Int : 140 ms QRS Dur : 082 ms QT Int : 390 ms P-R-T Axes : 054 -02 032 degrees QTc Int : 449 ms Normal sinus rhythm Normal ECG Confirmed by PAGE DIXON, LISA ([id number]), slot editor KASI HUGHES ([id number]) on 05/09/2020 5:30:39 PM Referred By: Confirmed By:LISA ABEL MD
== END 2020-05-08 18:02 | disposition home or self-care (01) | DRG 177 ==
LOC: ERS 13:09 → T4-B 18:29 → OBSVTOIN 05-05 09:59
PROVIDERS: ADMIT Internal Medicine; ATTEND Hospitalist
PROC: 8E0ZXY6 Isolation (ICD-10-PCS; principal; 2020-05-05)
DX: U07.1 COVID-19 (principal); J12.82 Pneumonia due to coronavirus disease 2019; J96.01 Acute respiratory failure with hypoxia; D68.32 Hemorrhagic disorder due to extrinsic circulating anticoagulants; N39.0 Urinary tract infection, site not specified; I25.10 Atherosclerotic heart disease of native coronary artery without angina pectoris; I10 Essential (primary) hypertension; E78.5 Hyperlipidemia, unspecified; E03.9 Hypothyroidism, unspecified; K21.9 Gastro-esophageal reflux disease without esophagitis; F41.9 Anxiety disorder, unspecified; F32.9 Major depressive disorder, single episode, unspecified; M19.90 Unspecified osteoarthritis, unspecified site; E11.9 Type 2 diabetes mellitus without complications; R04.0 Epistaxis; T45.515A Adverse effect of anticoagulants, initial encounter; B96.20 Unspecified Escherichia coli [E. coli] as the cause of diseases classified elsewhere
CPT/HCPCS: 36415; 71045; 71275; 80048; 80053; 81003; 81015; 82728; 83605; 83735; 84145; 84443; 84484; 85007; 85025; 85027; 85379; 86140; 87086; 93005; 96365; 96367; 96372; 96375; 96376; G0378; J0456; J0692; J0696; J1100; J1650; J2405; J3490; J8540; Q0162; Q9967

== ENCOUNTER 2020-05-10 09:20 | Emergency (ER) | payer SELFPAY ==
[2020-05-10] MEDS ORDERED: Iopamidol-370 76% 500 ML 1 ML ONE (09:32)
[2020-05-10 10:05] LABS: #Basophils 0.1 thou/uL (0.0-0.2); #Eosinphils 0.1 thou/uL (0.0-0.7); #Monocytes 0.6 thou/uL (0.11-0.59); #Neutrophils 9.3 thou/uL (1.40-6.50); %Basophils 0.4 % (0.0-1.0); %Eosinophils 0.5 % (0.0-10.0); %Lymphocytes 16.5 % (21.0-51.0); %Neutrophils 77.5 % (42.0-75.0); Hemoglobin 15.3 g/dL (12.0-16.0); Mean Corpuscular HGB CONC 33.3 g/dL (32.0-36.0); Mean Corpuscular Hemoglobin 27.8 pg (27.0-31.0); Mean Corpuscular Volume 83.7 fL (78.0-98.0); Mean Platelet Volume 8.5 fL (7.4-10.4); Platelet Count 282 thou/uL (130-400)
[2020-05-10 10:25] LABS: ALT (SGPT) 43 U/L (8-55); AST (SGOT) 36 U/L (5-34); Albumin 3.6 g/dL (3.4-4.8); Alkaline Phosphatase 75 U/L (40-110); Anion Gap 13 mmol/L (10-20); BUN (Urea Nitrogen) 15 mg/dL (9.8-20.1); Bilirubin, Total 0.8 mg/dL (0.2-1.2); Calc. Creatinine Clearance 0 mL/min (70-130); Calcium 8.5 mg/dL (7.8-10.44); Carbon Dioxide 27 mmol/L (23-31); Chloride 102 mmol/L (98-107); Glucose 131 mg/dL (80-115); Potassium 3.5 mmol/L (3.5-5.1); Protein, Total 6.6 g/dL (5.8-8.1); Sodium 138 mmol/L (136-145)
--- NOTE | 2020-05-10 11:26 | RAD ---
PORTABLE CHEST: HISTORY: COVID positive now with increasing shortness of breath. COMPARISON: A 05/02/2020 study. FINDINGS: Heart size is within normal limits. There has been a mild worsening in the bilateral lung infiltrate s. IMPRESSION: Some mild worsening to the bilateral lung infiltrates. POS: OFF
[2020-05-10] MEDS ORDERED: Ondansetron PF 4 MG/2 ML Vial ONE (11:59)
[2020-05-10] MEDS ORDERED: hydrOXYzine 25 MG TAB ONE (11:59)
--- NOTE | 2020-05-10 13:01 | CT ---
CT ANGIO OF CHEST PERFORMED WITH INTRAVENOUS CONTRAST ENHANCEMENT WITH 3D RECONSTRUCTIONS: HISTORY: The patient was discharged from the hospital 2 days ago for COVID now with worsening shortness of gil ath. COMPARISON: A 05/02/2020 CT examination and chest x-rays done today and 05/02/2020. FINDINGS: Although the lung infiltrative changes appear increased on the chest x-rays compared to the older exa m on the CT study, there does not appear to be any significant degree of interval change. No significant mediastinal or hilar adenopathy. The thoracic aorta is normal in caliber. There is good pulmonary artery opacification. There is CT evidence for pulmonary embolus. Visualized liver parenchyma shows no focal abnormalities. IMPRESSION: 1. Bilateral lung infiltrates. By CT the appearance is fairly similar to the previous exam. 2. No CT evidence for pulmonary embolus. POS: OFF
== END 2020-05-10 13:46 | disposition home or self-care (01) ==
LOC: ERS 09:20
DX: U07.1 COVID-19 (principal); E03.9 Hypothyroidism, unspecified; M19.90 Unspecified osteoarthritis, unspecified site; I25.10 Atherosclerotic heart disease of native coronary artery without angina pectoris; E78.5 Hyperlipidemia, unspecified; I10 Essential (primary) hypertension; Z79.899 Other long term (current) drug therapy
CPT/HCPCS: 36415; 71045; 71275; 80053; 83605; 84484; 85025; 85379; 93005; 94760; 96374; J2405; Q9967

== ENCOUNTER 2021-04-10 20:51 | Emergency (ER) | payer SELFPAY ==
[2021-04-10 21:32] LABS: #Basophils 0.1 thou/uL (0.0-0.2); #Eosinphils 0.2 thou/uL (0.0-0.7); #Lymphocytes 3.9 thou/uL (1.20-3.40); #Monocytes 0.7 thou/uL (0.11-0.59); #Neutrophils 6.4 thou/uL (1.40-6.50); %Basophils 0.8 % (0.0-1.0); %Eosinophils 1.8 % (0.0-10.0); %Lymphocytes 34.4 % (21.0-51.0); %Monocytes 6.6 % (0.0-10.0); %Neutrophils 56.4 % (42.0-75.0); Hemoglobin 15.6 g/dL (12.0-16.0); Mean Corpuscular HGB CONC 33.8 g/dL (32.0-36.0); Mean Corpuscular Hemoglobin 29.4 pg (27.0-31.0); Mean Corpuscular Volume 86.9 fL (78.0-98.0); Platelet Count 202 thou/uL (130-400); RBC Distribution Width 11.8 % (11.5-14.5); Red Blood Cell (RBC) Count 5.32 mill/uL (4.20-5.40); White Blood Cell (WBC) Count 11.3 thou/uL (4.8-10.8)
[2021-04-10] MEDS ORDERED: Lorazepam 1 MG TAB ONE (21:44)
[2021-04-10] MEDS ORDERED: Aspirin Chewable 81 MG TAB ONE (21:44)
[2021-04-10 21:55] LABS: ALT (SGPT) 21 U/L (8-55); AST (SGOT) 24 U/L (5-34); Albumin 4.7 g/dL (3.4-4.8); Alkaline Phosphatase 108 U/L (40-110); Anion Gap 16 mmol/L (10-20); BUN (Urea Nitrogen) 17 mg/dL (9.8-20.1); Bilirubin, Total 0.4 mg/dL (0.2-1.2); Calc. Creatinine Clearance 0 mL/min (70-130); Calcium 9.6 mg/dL (7.8-10.44); Carbon Dioxide 25 mmol/L (23-31); Chloride 100 mmol/L (98-107); Globulin 2.9 g/dL (2.4-3.5); Glucose 109 mg/dL (80-115); Potassium 4.2 mmol/L (3.5-5.1); Protein, Total 7.6 g/dL (5.8-8.1); Sodium 137 mmol/L (136-145)
[2021-04-10] MEDS ORDERED: hydrOXYzine 25 MG TAB ONE ×2 (22:30)
== END 2021-04-10 23:35 | disposition home or self-care (01) ==
LOC: ERS 20:51
DX: F41.1 Generalized anxiety disorder (principal); I10 Essential (primary) hypertension; E78.5 Hyperlipidemia, unspecified; I25.10 Atherosclerotic heart disease of native coronary artery without angina pectoris; E03.9 Hypothyroidism, unspecified; M19.90 Unspecified osteoarthritis, unspecified site; Z79.899 Other long term (current) drug therapy
CPT/HCPCS: 36415; 71045; 80053; 83880; 84484; 85025; 93005

== ENCOUNTER 2021-04-16 08:25 | Inpatient (IN) | payer SELFPAY ==
[2021-04-16] MEDS ORDERED: Lorazepam 2 MG/ML VIAL ONE (08:48)
[2021-04-16 09:15] LABS: #Basophils 0.1 thou/uL (0.0-0.2); #Eosinphils 0.3 thou/uL (0.0-0.7); #Lymphocytes 2.5 thou/uL (1.20-3.40); #Monocytes 0.7 thou/uL (0.11-0.59); #Neutrophils 6.6 thou/uL (1.40-6.50); %Basophils 0.7 % (0.0-1.0); %Eosinophils 3.3 % (0.0-10.0); %Lymphocytes 24.6 % (21.0-51.0); %Monocytes 6.7 % (0.0-10.0); %Neutrophils 64.8 % (42.0-75.0); Mean Corpuscular HGB CONC 32.9 g/dL (32.0-36.0); Mean Corpuscular Hemoglobin 28.4 pg (27.0-31.0); Mean Corpuscular Volume 86.3 fL (78.0-98.0); Mean Platelet Volume 9.1 fL (7.4-10.4); Platelet Count 180 thou/uL (130-400); RBC Distribution Width 12.1 % (11.5-14.5); Red Blood Cell (RBC) Count 5.63 mill/uL (4.20-5.40); White Blood Cell (WBC) Count 10.1 thou/uL (4.8-10.8)
[2021-04-16 10:24] LABS: CKMB 7.1 ng/mL (0-6.6)
[2021-04-16 10:32] LABS: ALT (SGPT) 28 U/L (8-55); AST (SGOT) 44 U/L (5-34); Albumin 4.5 g/dL (3.4-4.8); Alkaline Phosphatase 104 U/L (40-110); Anion Gap 21 mmol/L (10-20); BUN (Urea Nitrogen) 22 mg/dL (9.8-20.1); Bilirubin, Total 0.5 mg/dL (0.2-1.2); Calc. Creatinine Clearance 0 mL/min (70-130); Calcium 10.1 mg/dL (7.8-10.44); Carbon Dioxide 19 mmol/L (23-31); Chloride 104 mmol/L (98-107); Globulin 3.9 g/dL (2.4-3.5); Glucose 160 mg/dL (80-115); Potassium 5.3 mmol/L (3.5-5.1); Protein, Total 8.4 g/dL (5.8-8.1); Sodium 139 mmol/L (136-145)
[2021-04-16 11:22] LABS: PTT 30.6 sec (22.9-36.1); Prothrombin Time 13.4 sec (12.0-14.7)
[2021-04-16] MEDS ORDERED: Aspirin Chewable 81 MG TAB ONE (12:24)
[2021-04-16] MEDS ORDERED: Enoxaparin Sodium 100 MG/ML SYRINGE ONE ×2 (12:24→12:36)
[2021-04-16] MEDS ORDERED: Enoxaparin Sodium 80 MG/0.8 ML SYRINGE ONE (12:36)
[2021-04-16] MEDS ORDERED: Senokot S 8.6-50 MG TAB PO PRN (12:41)
[2021-04-16] MEDS ORDERED: Acetaminophen 325 MG TAB PO PRN (12:41)
[2021-04-16] MEDS ORDERED: Ondansetron ODT 4 MG TAB PO PRN (12:41)
[2021-04-16] MEDS ORDERED: Calcium Carbonate 500 MG ChewTAB PO PRN (12:41)
[2021-04-16 12:56] LABS: Magnesium 2.1 mg/dL (1.6-2.6)
[2021-04-16] MEDS ORDERED: cloNIDine 0.1 MG TAB PO PRN (12:56)
[2021-04-16] MEDS ORDERED: Lorazepam 1 MG TAB ONE (14:00)
[2021-04-16] MEDS: Lorazepam 0.5 MG TAB PO PRN ×2 (14:07→20:30)
[2021-04-16 15:23] LABS: Anion Gap 13 mmol/L (10-20); BUN (Urea Nitrogen) 20 mg/dL (9.8-20.1); Calc. Creatinine Clearance 0 mL/min (70-130); Calcium 9.5 mg/dL (7.8-10.44); Carbon Dioxide 26 mmol/L (23-31); Chloride 103 mmol/L (98-107); Glucose 247 mg/dL (80-115); Potassium 3.8 mmol/L (3.5-5.1); Sodium 138 mmol/L (136-145)
[2021-04-16 15:31] LABS: SARS-CoV-2 PCR by NAA Not Detected (NotDetected)
[2021-04-16 15:38] LABS: CKMB 4.5 ng/mL (0-6.6)
[2021-04-16 17:23] VITALS: BMI 37.8
[2021-04-16] MEDS: Carvedilol 6.25 MG TAB PO SCH (17:30)
[2021-04-16] MEDS: Ondansetron PF 4 MG/2 ML Vial IVP PRN (17:55)
[2021-04-16] MEDS: Atorvastatin Calcium 20 MG TAB PO SCH (20:30)
[2021-04-17] MEDS ORDERED: OLANZapine 10 MG VIAL IM SCH (00:15)
[2021-04-17] MEDS ORDERED: Sterile Water 10 ML VIAL FS PRN (01:00)
[2021-04-17 04:58] LABS: #Basophils 0.1 thou/uL (0.0-0.2); #Eosinphils 0.3 thou/uL (0.0-0.7); #Lymphocytes 2.8 thou/uL (1.20-3.40); #Monocytes 0.6 thou/uL (0.11-0.59); %Basophils 1.2 % (0.0-1.0); %Eosinophils 4.3 % (0.0-10.0); %Lymphocytes 41.1 % (21.0-51.0); %Monocytes 8.4 % (0.0-10.0); Hemoglobin 14.1 g/dL (12.0-16.0); Mean Corpuscular Hemoglobin 27.2 pg (27.0-31.0); Mean Corpuscular Volume 87.6 fL (78.0-98.0); Mean Platelet Volume 8.5 fL (7.4-10.4); Platelet Count 156 thou/uL (130-400); RBC Distribution Width 12.3 % (11.5-14.5); Red Blood Cell (RBC) Count 5.19 mill/uL (4.20-5.40); White Blood Cell (WBC) Count 6.7 thou/uL (4.8-10.8)
[2021-04-17 05:38] LABS: Anion Gap 16 mmol/L (10-20); BUN (Urea Nitrogen) 20 mg/dL (9.8-20.1); Calc. Creatinine Clearance 105 mL/min (70-130); Calcium 8.8 mg/dL (7.8-10.44); Chloride 106 mmol/L (98-107); Glucose 133 mg/dL (80-115); Sodium 139 mmol/L (136-145)
[2021-04-17 06:22] LABS: Carbon Dioxide 21 mmol/L (23-31)
[2021-04-17] MEDS: Carvedilol 6.25 MG TAB PO SCH ×2 (08:23→17:16)
[2021-04-17] MEDS: Ondansetron PF 4 MG/2 ML Vial IVP PRN (08:24)
[2021-04-17] MEDS ORDERED: Regadenoson 0.4 MG/5 ML SYRINGE ONE (08:53)
[2021-04-17] MEDS ORDERED: Aspirin 325 mg Enteric Coated Tablet PO SCH (09:00)
[2021-04-17] MEDS ORDERED: Enoxaparin Sodium 40 MG/0.4 ML SYRINGE SC SCH (09:00)
[2021-04-17] MEDS ORDERED: FLU VACC QS2021-22(65YR UP)/PF 240 MCG/0.7 ML SYRINGE IM ONE (09:00)
[2021-04-17] MEDS ORDERED: Nitroglycerin 0.4 MG TAB (25 Tab Bottle) SL PRN (09:35)
[2021-04-17] MEDS: Lorazepam 0.5 MG TAB PO PRN (09:44)
[2021-04-17] MEDS: Gabapentin 300 MG CAP PO SCH ×2 (15:23→20:14)
[2021-04-17] MEDS: busPIRone HCl 5 MG TAB PO SCH (20:13)
[2021-04-17] MEDS: Atorvastatin Calcium 20 MG TAB PO SCH (20:14)
[2021-04-17] MEDS: buPROPion 75 MG TAB PO SCH (20:18)
[2021-04-17] MEDS ORDERED: busPIRone HCl 10 MG TAB PO SCH (21:00)
[2021-04-17] MEDS ORDERED: Bupropion 100 MG SR TAB PO SCH (21:00)
[2021-04-17] MEDS ORDERED: Bupropion 150 MG SR TAB PO SCH (21:00)
[2021-04-17] MEDS ORDERED: Atorvastatin Calcium 20 MG TAB PO SCH (21:00)
[2021-04-18] MEDS: Levothyroxine Sodium 25 MCG TAB PO SCH (06:08)
[2021-04-18] MEDS ORDERED: Aspirin 81 mg Enteric Coated Tablet PO SCH (09:00)
[2021-04-18] MEDS: Aspirin 325 mg Enteric Coated Tablet PO SCH (09:18)
[2021-04-18] MEDS: busPIRone HCl 5 MG TAB PO SCH (09:19)
[2021-04-18] MEDS: Losartan 25 MG TAB PO SCH (09:19)
[2021-04-18] MEDS: buPROPion 75 MG TAB PO SCH (09:20)
[2021-04-18] MEDS: Carvedilol 6.25 MG TAB PO SCH ×2 (09:20→16:03)
[2021-04-18] MEDS: Gabapentin 300 MG CAP PO SCH ×3 (09:22→20:45)
[2021-04-18] MEDS: Lorazepam 0.5 MG TAB PO PRN (11:20)
[2021-04-18] MEDS ORDERED: Diazepam 5 MG TAB PO SCH (16:00)
[2021-04-18] MEDS ORDERED: Communication Order-Pharmacy FS SCH (16:00)
[2021-04-18] MEDS: Atorvastatin Calcium 20 MG TAB PO SCH (20:45)
[2021-04-19] MEDS ORDERED: Sodium Chloride 0.9% 500 ML IV SCH (00:01)
[2021-04-19] MEDS: Levothyroxine Sodium 25 MCG TAB PO SCH (05:27)
[2021-04-19] MEDS: Lorazepam 0.5 MG TAB PO PRN ×2 (06:32→14:35)
[2021-04-19] MEDS ORDERED: Midazolam HCl 2 mg/2 ml Vial ONE (08:51)
[2021-04-19] MEDS ORDERED: Fentanyl 100 MCG/2 ML VIAL ONE (08:51)
[2021-04-19] MEDS ORDERED: Nitroglycerin 100MG/250ML BOT 250 ML ONE (09:03)
[2021-04-19] MEDS ORDERED: Iopamidol 370 76% 100 ML VIAL ONE (09:40)
[2021-04-19] MEDS: Gabapentin 300 MG CAP PO SCH ×2 (09:54→14:35)
[2021-04-19] MEDS: Losartan 25 MG TAB PO SCH (09:54)
[2021-04-19] MEDS: Aspirin 325 mg Enteric Coated Tablet PO SCH (09:54)
[2021-04-19] MEDS: Carvedilol 6.25 MG TAB PO SCH ×2 (09:55→18:29)
[2021-04-19] MEDS: Ondansetron PF 4 MG/2 ML Vial IVP PRN (14:35)
[2021-04-19 16:27] VITALS: BP 175/71; TEMP 98.4
[2021-04-19] MEDS ORDERED: Promethazine HCl 25 MG in Sodium Chloride 0.9% 50 ML IVPB SCH (16:30)
== END 2021-04-19 18:15 | disposition home or self-care (01) | DRG 287 ==
LOC: ERS 08:25 → ERHOLD 11:15 → NEURO 16:59 → OBSVTOIN 04-17 15:25
PROVIDERS: ADMIT Internal Medicine; ATTEND Internal Medicine
PROC: 4A023N7 Measurement of Cardiac Sampling and Pressure, Left Heart, Percutaneous Approach (ICD-10-PCS; principal; 2021-04-19)
PROC: B2111ZZ Fluoroscopy of Multiple Coronary Arteries using Low Osmolar Contrast (ICD-10-PCS; 2021-04-19)
PROC: B2151ZZ Fluoroscopy of Left Heart using Low Osmolar Contrast (ICD-10-PCS; 2021-04-19)
DX: R07.89 Other chest pain (principal); M62.82 Rhabdomyolysis; E87.2 Acidosis; E87.5 Hyperkalemia; Z20.822 Contact with and (suspected) exposure to COVID-19; I25.10 Atherosclerotic heart disease of native coronary artery without angina pectoris; I10 Essential (primary) hypertension; E03.9 Hypothyroidism, unspecified; F32.A Depression, unspecified; E78.5 Hyperlipidemia, unspecified; K21.9 Gastro-esophageal reflux disease without esophagitis; E55.9 Vitamin D deficiency, unspecified; G47.00 Insomnia, unspecified; F41.0 Panic disorder [episodic paroxysmal anxiety]; F03.90 Unspecified dementia, unspecified severity, without behavioral disturbance, psychotic disturbance, mood disturbance, and anxiety; Z86.16 Personal history of COVID-19; Z98.51 Tubal ligation status; Z90.49 Acquired absence of other specified parts of digestive tract; Z90.710 Acquired absence of both cervix and uterus; Z79.890 Hormone replacement therapy; Z79.899 Other long term (current) drug therapy; Z79.82 Long term (current) use of aspirin
CPT/HCPCS: 36415; 78452; 80048; 80053; 82550; 82553; 83735; 84443; 84484; 85025; 85379; 85610; 85730; 90471; 90662; 90732; 93005; 93017; 93306; 93458; 96372; 96374; 96375; 96376; 99152; A9500; G0008; G0009; G0378; J1650; J2060; J2250; J2405; J2550; J2785; J3010; J7030; Q9967; U0003; U0005

== ENCOUNTER 2022-05-11 20:22 | Emergency (ER) | payer SELFPAY ==
[2022-05-11] MEDS ORDERED: Haloperidol Lactate 5 MG/ML VIAL ONE (21:15)
[2022-05-11 21:19] LABS: #Basophils 0.1 thou/uL (0.0-0.2); #Eosinphils 0.3 thou/uL (0.0-0.7); #Lymphocytes 2.2 thou/uL (1.20-3.40); #Monocytes 0.6 thou/uL (0.11-0.59); #Neutrophils 5.8 thou/uL (1.40-6.50); %Basophils 1.2 % (0.0-1.0); %Eosinophils 3.1 % (0.0-10.0); %Lymphocytes 24.5 % (21.0-51.0); %Monocytes 6.7 % (0.0-10.0); %Neutrophils 64.4 % (42.0-75.0); Hemoglobin 13.5 g/dL (12.0-16.0); Mean Corpuscular HGB CONC 33.1 g/dL (32.0-36.0); Mean Corpuscular Hemoglobin 28.7 pg (27.0-31.0); Mean Corpuscular Volume 86.8 fl (78.0-98.0); Mean Platelet Volume 8.8 fL (7.4-10.4); Platelet Count 202 10x3/uL (130-400); RBC Distribution Width 12.1 % (11.5-14.5); Red Blood Cell (RBC) Count 4.71 mill/uL (4.20-5.40); White Blood Cell (WBC) Count 8.9 10x3/uL (4.8-10.8)
[2022-05-11 21:32] LABS: Acetaminophen Less than 10.0 mcg/mL (10.0-30.0); Alcohol Less than 10 mg/dL (Less than 10); Salicylate Less than 8.0 mg/dL (15.0-30.0)
[2022-05-11 21:43] LABS: ALT (SGPT) 31 U/L (8-55); AST (SGOT) 26 U/L (5-34); Alkaline Phosphatase 78 U/L (40-110); Anion Gap 17 mmol/L (10-20); BUN (Urea Nitrogen) 18 mg/dL (9.8-20.1); Bilirubin, Total 0.4 mg/dL (0.2-1.2); Calc. Creatinine Clearance 0 mL/min (70-130); Calcium 8.9 mg/dL (7.8-10.44); Carbon Dioxide 18 mmol/L (23-31); Chloride 107 mmol/L (98-107); Estimated GFR 80; Globulin 2.8 g/dL (2.4-3.5); Glucose 121 mg/dL (80-115); Potassium 3.8 mmol/L (3.5-5.1); Protein, Total 6.8 g/dL (5.8-8.1); Sodium 138 mmol/L (136-145)
[2022-05-12 01:55] LABS: Amphetamine Not Detected (NotDetected); Barbiturates Screen Not Detected (NotDetected); Benzodiazepine Screen Detected (NotDetected); Cocaine Metabolite Screen Not Detected (NotDetected); Methadone Not Detected (NotDetected); Methamphetamine Not Detected (NotDetected); Opiate Screen Not Detected (NotDetected); Oxycodone Screen Not Detected (NotDetected); Phencyclidine (PCP) Not Detected (NotDetected); THC/Cannabinoid Screen Not Detected (NotDetected); Tricyclic Screen Not Detected (NotDetected)
[2022-05-12 03:56] LABS: SARS-CoV-2 NAA Rapid Test Not Detected (NotDetected)
[2022-05-12] MEDS ORDERED: Levothyroxine Sodium 50 MCG TAB PO SCH (06:00)
[2022-05-12] MEDS ORDERED: Haloperidol Lactate 5 MG/ML VIAL IM SCH (08:45)
[2022-05-12] MEDS ORDERED: Carvedilol 6.25 MG TAB PO SCH (09:00)
[2022-05-12] MEDS ORDERED: hydrOXYzine 25 MG TAB PO SCH (09:00)
[2022-05-12] MEDS ORDERED: QUEtiapine 25 MG TAB PO SCH (09:00)
[2022-05-12] MEDS ORDERED: Diazepam 5 MG TAB PO SCH (09:00)
[2022-05-12] MEDS ORDERED: lamoTRIgine 100 MG TAB PO SCH (09:00)
[2022-05-12] MEDS ORDERED: Gabapentin 300 MG CAP PO SCH (09:00)
[2022-05-12] MEDS ORDERED: FLUoxetine HCl 20 MG CAP PO SCH ×2 (09:00→21:00)
[2022-05-12] MEDS ORDERED: Diazepam 5 MG TAB ONE ×2 (09:58→15:23)
[2022-05-12] MEDS ORDERED: hydrOXYzine 25 MG TAB ONE (09:59)
[2022-05-12] MEDS ORDERED: Meloxicam 15 MG TAB PO SCH (21:00)
[2022-05-12] MEDS ORDERED: Losartan 25 MG TAB PO SCH (21:00)
== END 2022-05-12 18:17 ==
LOC: ERS 20:22
DX: F03.90 Unspecified dementia, unspecified severity, without behavioral disturbance, psychotic disturbance, mood disturbance, and anxiety (principal); I10 Essential (primary) hypertension; F22 Delusional disorders; E03.9 Hypothyroidism, unspecified; E78.5 Hyperlipidemia, unspecified
CPT/HCPCS: 36415; 51701; 70450; 80053; 80306; 80307; 85025; 93005; 96372; J1630; U0002

== ENCOUNTER 2022-10-26 10:10 | Observation (INO) | payer SELFPAY ==
[~2022-10-26 10:10] MED LIST changes: -Iopamidol-370 76% 500 ML 1 ML ONE; +Iopamidol-370 76% 500 ML MDV (1 ML CHARGE) ONE
[2022-10-26] MEDS ORDERED: Ondansetron PF 4 MG/2 ML Vial ONE (10:43)
[2022-10-26 10:50] LABS: #Eosinphils 0.3 thou/uL (0.0-0.7); #Monocytes 0.6 thou/uL (0.11-0.59); #Neutrophils 4.7 thou/uL (1.40-6.50); %Basophils 0.5 % (0.0-1.0); %Eosinophils 4.1 % (0.0-10.0); %Monocytes 7.7 % (0.0-10.0); %Neutrophils 63.3 % (42.0-75.0); Hematocrit 45.8 % (36.0-47.0); Hemoglobin 14.8 g/dL (12.0-16.0); Mean Corpuscular HGB CONC 32.3 g/dL (32.0-36.0); Mean Corpuscular Volume 86.6 fl (78.0-98.0); Mean Platelet Volume 11.1 fL (7.4-10.4); Platelet Count 182 10x3/uL (130-400); RBC Distribution Width 13.2 % (11.5-14.5); Red Blood Cell (RBC) Count 5.29 mill/uL (4.20-5.40); White Blood Cell (WBC) Count 7.4 10x3/uL (4.8-10.8)
[2022-10-26 11:15] LABS: ALT (SGPT) 22 U/L (8-55); AST (SGOT) 23 U/L (5-34); Albumin 4.1 g/dL (3.4-4.8); Alkaline Phosphatase 96 U/L (40-110); Anion Gap 12 mmol/L (10-20); BUN (Urea Nitrogen) 14 mg/dL (9.8-20.1); Bilirubin, Total 0.3 mg/dL (0.2-1.2); Calc. Creatinine Clearance 0 mL/min (70-130); Carbon Dioxide 23 mmol/L (23-31); Chloride 107 mmol/L (98-107); Estimated GFR 78; Globulin 2.8 g/dL (2.4-3.5); Glucose 161 mg/dL (80-115); Potassium 4.3 mmol/L (3.5-5.1); Protein, Total 6.9 g/dL (5.8-8.1); Sodium 138 mmol/L (136-145)
[2022-10-26] MEDS ORDERED: Meclizine HCl 25 MG TAB ONE ×2 (11:26→11:28)
[2022-10-26 11:36] LABS: Bacteria/HPF None Seen HPF (None Seen); Bilirubin Negative (Negative); Blood, Urine Negative (Negative); CAUTI Indications for Culture Alt mental st,lethar; Clarity Clear (Clear); Glucose, Urine (Dipstick) Normal (Negative); Ketone, Urine Negative (Negative); Leukocyte 250 Leu/uL (Negative); Nitrite Negative (Negative); Protein, Urine (Dipstick) Negative (Neg-Trace); RBC/HPF 0-3 HPF (0-3); Squamous Epithelial None Seen HPF (0-3); Urobilinogen Normal mg/dL (Less than 2); WBC/HPF 0-3 HPF (0-3)
[2022-10-26 11:38] LABS: Urine Culture Reflex No No
[2022-10-26] MEDS ORDERED: Ondansetron PF 4 MG/2 ML Vial IVP PRN (13:25)
[2022-10-26] MEDS ORDERED: Scopolamine 1.5 mg/72 hour Patch TD SCH (13:30)
[2022-10-26] MEDS ORDERED: CEFAZOLIN 1 GM in Sodium Chloride 0.9% 100 ML IVPB SCH (14:00)
[2022-10-26 15:56] VITALS: BMI 32.1
[2022-10-26 16:00] VITALS: BP 140/86; TEMP 98
== END 2022-10-26 15:00 | disposition home or self-care (01) ==
LOC: ERS 10:10 → 2SW 13:10
PROVIDERS: ADMIT Internal Medicine; ATTEND Internal Medicine
DX: R42 Dizziness and giddiness (principal); R11.2 Nausea with vomiting, unspecified; E03.9 Hypothyroidism, unspecified; I10 Essential (primary) hypertension; F41.9 Anxiety disorder, unspecified; F32.A Depression, unspecified; E78.5 Hyperlipidemia, unspecified; K21.9 Gastro-esophageal reflux disease without esophagitis; N39.0 Urinary tract infection, site not specified; M19.90 Unspecified osteoarthritis, unspecified site; E55.9 Vitamin D deficiency, unspecified; G47.00 Insomnia, unspecified; Z86.010 Personal history of colon polyps; Z86.16 Personal history of COVID-19; Z98.51 Tubal ligation status; Z90.710 Acquired absence of both cervix and uterus; Z98.890 Other specified postprocedural states; Z90.49 Acquired absence of other specified parts of digestive tract; Z79.890 Hormone replacement therapy; Z79.899 Other long term (current) drug therapy
CPT/HCPCS: 70496; 70551; 80053; 81001; 84484; 85025; 93005; 96361; 96374; 96375; G0378; J0690; J2405; J3490; Q9967

== ENCOUNTER 2022-12-25 12:52 | Emergency (ER) | payer SELFPAY ==
[2022-12-25 13:34] LABS: #Basophils 0.1 thou/uL (0.0-0.2); #Eosinphils 0.2 thou/uL (0.0-0.7); #Monocytes 0.7 thou/uL (0.11-0.59); #Neutrophils 7.9 thou/uL (1.40-6.50); %Basophils 0.5 % (0.0-1.0); %Eosinophils 1.6 % (0.0-10.0); %Lymphocytes 19.5 % (21.0-51.0); %Monocytes 6.1 % (0.0-10.0); %Neutrophils 71.8 % (42.0-75.0); Hematocrit 46.1 % (36.0-47.0); Hemoglobin 15.6 g/dL (12.0-16.0); Mean Corpuscular HGB CONC 33.8 g/dL (32.0-36.0); Mean Corpuscular Hemoglobin 28.8 pg (27.0-31.0); Mean Corpuscular Volume 85.1 fl (78.0-98.0); Mean Platelet Volume 11.2 fL (7.4-10.4); Platelet Count 198 10x3/uL (130-400); RBC Distribution Width 12.8 % (11.5-14.5); Red Blood Cell (RBC) Count 5.42 mill/uL (4.20-5.40); White Blood Cell (WBC) Count 10.9 10x3/uL (4.8-10.8)
[2022-12-25 13:59] LABS: ALT (SGPT) 18 U/L (8-55); AST (SGOT) 18 U/L (5-34); Albumin 4.2 g/dL (3.4-4.8); Alkaline Phosphatase 95 U/L (40-110); Anion Gap 17 mmol/L (10-20); BUN (Urea Nitrogen) 18 mg/dL (9.8-20.1); Bilirubin, Total 0.3 mg/dL (0.2-1.2); Calc. Creatinine Clearance 0 mL/min (70-130); Calcium 9.6 mg/dL (7.8-10.44); Carbon Dioxide 23 mmol/L (23-31); Chloride 102 mmol/L (98-107); Estimated GFR 81; Globulin 2.9 g/dL (2.4-3.5); Glucose 255 mg/dL (80-115); Potassium 4.1 mmol/L (3.5-5.1); Protein, Total 7.1 g/dL (5.8-8.1); Sodium 138 mmol/L (136-145)
[2022-12-25] MEDS ORDERED: Aspirin Chewable 81 MG TAB ONE (15:03)
[2022-12-25 15:26] LABS: Troponin I Less than 0.010 ng/mL (< 0.028)
[2022-12-25 17:30] LABS: Bacteria/HPF None Seen HPF (None Seen); Bilirubin Negative (Negative); Blood, Urine Negative (Negative); CAUTI Indications for Culture Alt mental st,lethar; Clarity Clear (Clear); Glucose, Urine (Dipstick) 50 mg/dL (Negative); Ketone, Urine Negative (Negative); Leukocyte 75 Leu/uL (Negative); Nitrite Negative (Negative); Protein, Urine (Dipstick) Negative (Neg-Trace); RBC/HPF 0-3 HPF (0-3); Specific Gravity, Urine 1.012 (1.002-1.036); Squamous Epithelial None Seen HPF (0-3); Urobilinogen Normal mg/dL (Less than 2); pH, Urine 6.5 (5.0-9.0)
[2022-12-25 17:41] LABS: Urine Culture Reflex Yes Yes
[2022-12-25] MEDS ORDERED: Amlodipine 5 MG TAB ONE (18:48)
[2022-12-25] MEDS ORDERED: Carvedilol 6.25 MG TAB PO SCH (19:00)
[2022-12-25 19:22] LABS: Troponin I Less than 0.010 ng/mL (< 0.028)
== END 2022-12-25 20:01 | disposition left against medical advice (07) ==
LOC: ERS 12:52
DX: R07.9 Chest pain, unspecified (principal); R42 Dizziness and giddiness; E03.9 Hypothyroidism, unspecified; E78.5 Hyperlipidemia, unspecified; I10 Essential (primary) hypertension; I25.10 Atherosclerotic heart disease of native coronary artery without angina pectoris; Z87.891 Personal history of nicotine dependence; Z79.899 Other long term (current) drug therapy
CPT/HCPCS: 36415; 71045; 71275; 80053; 81001; 83690; 84484; 85025; 87086; 93005; Q9967

== ENCOUNTER 2023-01-19 11:56 | Emergency (ER) | payer SELFPAY ==
[2023-01-19] MEDS ORDERED: Lorazepam 1 MG TAB ONE (13:01)
[2023-01-19] MEDS ORDERED: Ziprasidone 20 MG VIAL ONE (13:35)
[2023-01-19 13:41] LABS: #Basophils 0.1 thou/uL (0.0-0.2); #Eosinphils 0.2 thou/uL (0.0-0.7); #Monocytes 0.6 thou/uL (0.11-0.59); #Neutrophils 8.4 thou/uL (1.40-6.50); %Basophils 0.4 % (0.0-1.0); %Eosinophils 1.3 % (0.0-10.0); %Lymphocytes 17.9 % (21.0-51.0); %Monocytes 5.3 % (0.0-10.0); %Neutrophils 74.7 % (42.0-75.0); Hematocrit 49.1 % (36.0-47.0); Hemoglobin 16.4 g/dL (12.0-16.0); Mean Corpuscular HGB CONC 33.4 g/dL (32.0-36.0); Mean Corpuscular Hemoglobin 28.8 pg (27.0-31.0); Mean Corpuscular Volume 86.3 fl (78.0-98.0); Mean Platelet Volume 10.9 fL (7.4-10.4); Platelet Count 207 10x3/uL (130-400); RBC Distribution Width 12.3 % (11.5-14.5); Red Blood Cell (RBC) Count 5.69 mill/uL (4.20-5.40); White Blood Cell (WBC) Count 11.3 10x3/uL (4.8-10.8)
[2023-01-19 13:48] LABS: Bacteria/HPF None Seen HPF (None Seen); Bilirubin Negative (Negative); Blood, Urine Negative (Negative); CAUTI Indications for Culture Alt mental st,lethar; Clarity Clear (Clear); Glucose, Urine (Dipstick) 150 mg/dL (Negative); Ketone, Urine 20 mg/dL (Negative); Leukocyte 250 Leu/uL (Negative); Nitrite Negative (Negative); Protein, Urine (Dipstick) 50 mg/dL (Neg-Trace); RBC/HPF 0-3 HPF (0-3); Specific Gravity, Urine 1.022 (1.002-1.036); Squamous Epithelial 0-3 HPF (0-3); Urobilinogen Normal mg/dL (Less than 2); pH, Urine 5.5 (5.0-9.0)
[2023-01-19 13:56] LABS: Urine Culture Reflex Yes Yes
[2023-01-19 14:18] LABS: ALT (SGPT) 21 U/L (8-55); AST (SGOT) 22 U/L (5-34); Albumin 4.8 g/dL (3.4-4.8); Alkaline Phosphatase 91 U/L (40-110); Anion Gap 16 mmol/L (10-20); BUN (Urea Nitrogen) 17 mg/dL (9.8-20.1); Bilirubin, Total 0.4 mg/dL (0.2-1.2); Calc. Creatinine Clearance 0 mL/min (70-130); Calcium 9.9 mg/dL (7.8-10.44); Carbon Dioxide 23 mmol/L (23-31); Chloride 101 mmol/L (98-107); Estimated GFR 79; Globulin 2.6 g/dL (2.4-3.5); Glucose 190 mg/dL (80-115); Potassium 3.8 mmol/L (3.5-5.1); Protein, Total 7.4 g/dL (5.8-8.1); Sodium 136 mmol/L (136-145)
[2023-01-19] MEDS ORDERED: Bacitracin 1 PK ONE (14:57)
== END 2023-01-19 16:10 | disposition home or self-care (01) ==
LOC: ERS 11:56
DX: S60.511A Abrasion of right hand, initial encounter (principal); S60.512A Abrasion of left hand, initial encounter; N39.0 Urinary tract infection, site not specified; F03.90 Unspecified dementia, unspecified severity, without behavioral disturbance, psychotic disturbance, mood disturbance, and anxiety; I10 Essential (primary) hypertension; E78.5 Hyperlipidemia, unspecified; I25.10 Atherosclerotic heart disease of native coronary artery without angina pectoris; E03.9 Hypothyroidism, unspecified; Z87.891 Personal history of nicotine dependence; W22.8XXA Striking against or struck by other objects, initial encounter; Z79.899 Other long term (current) drug therapy
CPT/HCPCS: 36415; 80053; 81001; 84443; 85025; 87086; 96372; 99283; J3486